=== PATIENT | female | born 1955 | race Caucasian/White ===

== ENCOUNTER 2022-10-02 16:28 | Emergency (ER) | payer MEDICARE, SELFPAY ==
--- NOTE | ~2022-10-02 | XR_ITS ---
EXAMINATION: XR chest 2V 10/02/2022 17:01 INDICATION: Left arm pain radiating to the upper back. PROCEDURE: 2 view chest COMPARISON: Comparison to multiple prior studies sequentially, with oldest reviewed study dated 12/08. FINDINGS: The lungs are clear. The cardiomediastinal silhouette is within normal limits. There are no pleural effusions. There is no pneumothorax suspected. IMPRESSION: 1: NO ACUTE CARDIOPULMONARY DISEASE. Reviewed, dictated and finalized at location A. GAGE FIELD INSPECTOR
--- NOTE | 2022-10-02 16:32 | ECG_ITS ---
Rate 92 WA 189 QRSd 106 QT 372 QTc 460 --[place]-- P -9 QRS 78 T 7 SINUS RHYTHM INCOMPLETE RIGHT BUNDLE BRANCH BLOCK DELAYED PRECORDIAL R/S TRANSITION BORDERLINE T WAVE ABNORMALITY- ANTERIOR LEADS BASELINE ARTIFACT- II BORDERLINE ECG NO PREVIOUS ECG AVAILABLE FOR COMPARISON Electronically Signed On 10-03-2022 14:42:55 RECORD RETRIEVAL SPECIALIST by Puma COHN
[2022-10-02 16:43] VITALS: BP 141/64; PULSE 97; RESP 18; TEMP 36.6; O2SAT 98
[2022-10-02 16:49] LABS: Basophils Absolute Auto 0.1 K/mm3 (0.0-0.1); Basophils Percent Auto 0.5 % (0.2-1.2); Eosinophils Absolute Auto 0.1 K/mm3 (0-0.3); Eosinophils Percent Auto 0.8 % (0-4.4); Hematocrit 37.4 % (37.0-47.0); Hemoglobin 12.7 g/dL (12.0-15.0); Immature Granulocyte Absolute 0.04 K/mm3 (0.00-0.031); Immature Granulocyte Percent A 0.4 % (0-0.5); Lymphocytes Absolute Auto 1.48 K/mm3 (0.9-3.2); Lymphocytes Percent Auto 14.9 % (18.3-44.2); Mean Corpuscular Hemoglobin 27.7 pg (26-34); Mean Corpuscular Volume 81.7 fl (80-100); Mean Platelet Volume 9.8 fl (7.4-10.4); Monocytes Absolute Auto 1.1 K/mm3 (0.1-0.6); Monocytes Percent Auto 11.5 % (2.6-8.5); Neutrophils Absolute Auto 7.2 K/mm3 (1.3-6.7); Neutrophils Percent Auto 71.9 % (45.5-73.1); Platelet Count Result 383 k/mm3 (150-375); Red Blood Count 4.58 M/mm3 (4.2-5.4); Red Cell Distribution Width 13.2 % (11.5-14.5)
[2022-10-02 16:59] LABS: Alanine Aminotransferase 21 U/L (6-35); Albumin Level 4.5 g/dL (3.5-5.1); Alkaline Phosphatase 81 U/L (38-126); Anion Gap 9 mmol/L (8-16); Aspartate Amino Transferase 29 U/L (14-36); Bilirubin,Total 0.5 mg/dL (0.2-1.3); Blood Urea Nitrogen 10 mg/dL (7-17); Calcium 8.8 mg/dL (8.4-10.2); Carbon Dioxide 25 mmol/L (22-30); Chloride 88 mmol/L (98-107); Estimated CRCL calculation 93 ml/min; Estimated Glomerular Filt Rate > 60; Glucose 149 mg/dL (65-110); Lipase 101 U/L (23-300); Potassium 3.2 mmol/L (3.4-5.0); Sodium 122 mmol/L (137-145)
[2022-10-02 17:01] LABS: INR 1.1; Prothrombin Time 13.5 Seconds (11.1-14.7)
[2022-10-02 17:02] LABS: Partial Thromboplastin Time 24.4 SECONDS (22.3-36.8)
[2022-10-02 17:11] LABS: Troponin I < 0.012 ng/mL (0.000-0.034)
[2022-10-02 20:20] VITALS: BP 177/73; PULSE 98; RESP 22; O2SAT 100
[2022-10-02] MEDS: ASPIRIN 81 MG CHEWABLE TABLET 324 MG PO (20:21)
[2022-10-02 20:48] LABS: Troponin I < 0.012 ng/mL (0.000-0.034)
--- NOTE | 2022-10-02 21:05 | PC.NURSE ---
During of examination of pt, this nurse notices that the pt is experiencing tremors and appears to be anxious. This nurse asks about meds and discovers that pt usually takes sertraline and 1.5 mg of Xanax daily but cannot find those medications and therefore has stopped taking them abruptly. Pt last took sertraline 2 days ago.She took a dose of her 's medication when EMS came to her residence for the first time today.
[2022-10-02] MEDS: KETOROLAC 15 MG/ML VIAL (*BKC) IV PUSH (21:15)
[2022-10-02 23:19] VITALS: BP 134/62; PULSE 78; RESP 20; O2SAT 98
[2022-10-03 02:07] LABS: Ethanol < 10 mg/dL (<10)
[2022-10-03 02:22] LABS: Troponin I < 0.012 ng/mL (0.000-0.034)
[2022-10-03 02:44] LABS: Barbiturate Screen Urine Negative (Negative); Benzodiazepines Screen Urine Positive (Negative)
[2022-10-03 02:52] LABS: Amphetamine Screen Urine Negative (Negative); Cannabinoid Screen Urine Negative (Negative); Cocaine Screen Urine Negative (Negative); Methadone Screen Urine Negative (Negative); Opiate Screen Urine Positive (Negative); Phencyclidine Screen Urine Negative (Negative)
[2022-10-03 03:10] LABS: Influenza A QL RT-PCR Negative (Negative); Influenza B QL RT-PCR Negative (Negative); SARS-CoV-2 RNA PCR Negative
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
[2022-10-03 04:53] VITALS: BP 134/72; PULSE 68; RESP 22; TEMP 36.3; O2SAT 100
== END 2022-10-03 04:58 | disposition home or self-care (01) ==
PROVIDERS: Emergency Medicine; Emergency Provider Emergency Medicine; PCP Family Medicine
DX: F41.9 Anxiety disorder, unspecified (principal); F22 Delusional disorders; Z20.822 Contact with and (suspected) exposure to COVID-19; Z91.128 Patient's intentional underdosing of medication regimen for other reason; E78.5 Hyperlipidemia, unspecified; I10 Essential (primary) hypertension; Z86.73 Personal history of transient ischemic attack (TIA), and cerebral infarction without residual deficits; I45.10 Unspecified right bundle-branch block; R94.31 Abnormal electrocardiogram [ECG] [EKG]; R07.9 Chest pain, unspecified
CPT/HCPCS: 36415; 71046; 80053; 80307; 83690; 84443; 84484; 85025; 85610; 85730; 87636; 93005; 96374; 99284; A9270; J1885

== ENCOUNTER → 2023-09-06 15:10 | Outpatient (CLI) | payer MEDICARE, SELFPAY ==
--- NOTE | ~2023-09-06 | MR_ITS ---
MRI of the brain Clinical History: Amnesia Technique: Axial and sagittal T1-weighted images were acquired. These were followed by axial T2-weigh harinder, diffusion weighted, gradient, and FLAIR images. Findings: There is no acute infarct, intracranial hemorrhage, or mass lesion. There are mild chronic white matter changes in the periventricular white matter bilaterally. Ventricles and subarachnoid spaces are unremarkable. Orbits are unremarkable. Paranasal sinuses and m astoid air cells are clear. Major intracranial flow voids appear intact. Sagittal midline structures are intact. IMPRESSION: Mild chronic microvascular ischemic changes, otherwise unremarkable exam. Reviewed, dictated and finalized at location M. [employer] VICE PRESIDENT [employer] SAL[employer]
== END ==
PROVIDERS: PCP Student in an Organized Health Care Education/Training Program; Visit Provider Student in an Organized Health Care Education/Training Program
DX: I67.82 Cerebral ischemia (principal); R41.3 Other amnesia
CPT/HCPCS: 70551

== ENCOUNTER 2024-09-19 11:56 | Outpatient (CLI) | payer MEDICARE, SELFPAY ==
--- NOTE | ~2024-09-19 | XR_ITS ---
CHEST RADIOGRAPH, PA AND LATERAL CLINICAL HISTORY: PNEUMONIA FOLLOW UP, HX OF ASTHMA . COMPARISON: 10/02/2022 TECHNIQUE: PA and lateral views of the chest. FINDINGS The cardiomediastinal silhouette is unremarkable. The lungs are clear. Visualized osseous structures and soft tissues are unremarkable. IMPRESSION: No focal infiltrate or effusion. Reviewed, dictated and finalized at location A. IDENTIAL HELICOPTER CREW CHIEF
== END 2024-09-19 11:57 | disposition home or self-care (01) ==
PROVIDERS: PCP Psychiatry & Neurology Neurology; Visit Provider Nurse Practitioner Family
DX: R06.00 Dyspnea, unspecified (principal)
CPT/HCPCS: 71046

== ENCOUNTER 2024-10-08 09:10 | Outpatient (CLI) | payer MEDICARE, SELFPAY ==
--- OUTSIDE RECORDS SUMMARY | 2024-10-09 22:20 | XMS_ITS | Clinical Summary ---
Author Organization [facility] Address [facility]. [place], [place] [id number] [place] [id number] Care Team Providers Care Program Management Analyst Name Role Phone Unavailable Primary Care Provider Unavailabl e Social History Tobacco Use Types Packs/Day Years Used Date Smoking Tobacco: Never Assessed Comments Unknown Sex and Gender Information Value Date Recorded Sex Assigned at Not on file Legal Sex Female 4:46 PM CDT Gender Identity Not on file Sexual Orientation Not on file Plan of Treatment Health Maintenance Due Date Last Done Comments Colorectal Cancer Screening Colonoscopy (10 Years) 1956 Hepatitis C 1974 DTaP, Tdap and Td Vaccines ( 1 - Tdap) 1975 Mammogram Screening 1996 Zoster Vaccines (1 of 2) 2006 Dexa Scan (General) 2021 Pneumococcal Vaccine: 65+ Ye ars (1 of 1 - PCV) 2021 COVID-19 Vaccine (2023-2 5 season) 2024 Influenza Adult (#1) 2024 RSV Immunization or 60+ Years (1 - 1-dose 75+ series) 2031 Meningococcal Vaccine Aged Out No zach klaus eligible based on patient's age to complete this topic RSV Immunizations Under 20 Months Aged Out No longer eligible based on patient's age to complete this topic
--- NOTE | 2024-10-27 17:16 | P.SLEEP_ITS ---
Sleep Study Date of Study: 10/08/24 Ordering Provider: Fox Guevara APRN Interpreting Physician: Darlene Green MD Sleep Study Type: Split Polysomnogram Height: 1.7 m Weight: 95.254 kg Body Mass Index: 32.8 Neck Circumference (inches): 19 [place]: 3 PMFSH Past Medical History Medical History Occipital neuralgia of right side Hyperlipidemia Hypertension TIA (transient ischemic attack) Anxiety Surgical History Surgical History No pertinent past surgical history Social History Social History Smoking status: Never smoker Second hand tobacco smoke exposure: No Alcohol intake: never Drinks per week: 0 Substance use: never Do You Feel Safe in your Home?: Yes Lack of Transportation: No Lack of Food: Never True Current Housing: I Have Housing Concerned About Future Housing: No Difficulty Paying Gas/Electric Bills: No Difficulty Paying for Meds: No Currently Unemployed: No Education: High School Diploma/GED Difficulty w/ Childcare or Family Care: No Medications Home Medications ?Medication ?Instructions ?Recorded ?Confirmed ?Type alprazolam 1 mg tablet 1 mg PO DAILY 08/30/23 08/05/24 History aripiprazole 2 mg tablet (Abilify) 2 mg PO DAILY 08/30/23 08/05/24 History bupropion HCl 150 mg 24 hr tablet, 150 mg PO QAM 08/30/23 08/05/24 History extended release hydrochlorothiazide 25 mg tablet 25 mg PO DAILY 08/30/23 08/05/24 History losartan 100 mg tablet 100 mg PO DAILY 08/30/23 08/05/24 History potassium chloride 10 mEq 10 meq PO DAILY 04/02/24 08/05/24 History capsule,extended release donepezil 10 mg tablet 10 mg PO QHS #90 tabs 08/05/24 08/05/24 Rx rimegepant 75 mg disintegrating 75 mg PO ONCE PRN migraine 08/05/24 08/05/24 Rx tablet (Nurtec ODT) headache #14 tabs sertraline 100 mg tablet 50 mg PO DAILY 08/05/24 08/05/24 History topiramate 100 mg tablet 100 mg PO DAILY #90 tabs 08/05/24 08/05/24 Rx albuterol sulfate 90 mcg/actuation 1 - 2 inh inhalation Q4-6H PRN 09/19/24 09/19/24 Rx aerosol inhaler shortness of breath or wheezing #8.5 grams budesonide-formoterol HFA 160 2 puff inhalation Q12H #10.2 grams 09/19/24 09/19/24 Rx mcg-4.5 mcg/actuation aerosol inhaler (Symbicort) Sleep Procedure A full night polysomnogram using the [employer] multi-channel system recorded the standard physiologic parameters including EEG, EOG, submentalis EMG, anterior tibialis EMG, EKG, body position, nasal and oral airflow using nasal pressure sensor and thermistor. Respiratory parameters of chest and abdominal movements were recorded with Respiratory Inductance Plethysmography belts. Oxygen saturation was recorded by pulse oximetry. Video monitoring was also performed. Sleep stages, periodic limb movements, and EEG arousals were scored in 30 second epochs according to the criteria of the AASM Scoring Manual. The Apnea-Hypopnea Index was calculated using CMS guidelines for definition of hypopnea with 4% O2 desaturations while scoring respiratory events. Sleep Architecture Sleep Architecture During the diagnostic portion of the study, the total recording time was 176.3 minutes. The total sleep time was 137.0 minutes. Sleep latency was 11.8 minutes. REM latency was - minutes. Sleep Efficiency was 77.7%. The patient had 10 awakenings for an awakening index of 4.4. Wake after sleep onset time was 27.5 minutes. The patient spent 35.0 minutes, 25.5% of total sleep time in Stage N1. The patient spent 102.0 minutes, 74.5% in Stage N2. The patient spent 0.0 minutes, 0.0% in Stage N3. The patient spent 0.0 minutes, 0.0% in Stage REM sleep. At 01:21:39 AM the patient was placed on PAP treatment and was titrated at pressures ranging from 5* cm/H20 with supplemental oxygen at - up to 24/20/0 cm/H20 with supplemental oxygen at -. During the treatment portion of the study, the total recording time was 298.6 minutes. The total sleep time was 260.0 minutes. Sleep latency was 17.5 minutes. REM latency was 154.0 minutes. Sleep Efficiency was 87.1%. Wake after Sleep Onset time was 21.0 minutes. The patient spent 69.5 minutes, 26.7% of total sleep time in Stage N1. The patient spent 146.5 minutes, 56.3% in Stage N2. The patient spent 0.0 minutes, 0.0% in Stage N3. The patient spent 44.0 minutes, 16.9% in Stage REM. Respiratory Analysis During the diagnostic portion of the study, the patient had 86 hypopneas, 115 obstructive apneas, - mixed apneas, and - central apneas for an overall Apnea Hypopnea Index of 88.0 events per hour. The REM Apnea Hypopnea Index was -. The NREM Apnea Hypopnea Index was 88.0. The patient had a Central Apnea Hypopnea Index of -. There were - Respiratory Effort Related Arousals resulting in a RERA index of - events per hour. The Respiratory Disturbance Index is 88.0 events per hour. There was no evidence of Giuliano-Irwin Respirations. During the treatment portion of the study, the patient had 242 hypopneas, 49 obstructive apneas, 18 mixed apneas, and 1 central apneas for an overall Apnea Hypopnea Index of 71.5 events per hour. The REM Apnea Hypopnea Index was 72.3. The NREM Apnea Hypopnea Index was 71.4. The patient had a Central Apnea Hypopnea Index of 0.2. There were - Respiratory Effort Related Arousals resulting in a RERA index of - events per hour. The Respiratory Disturbance Index is 71.8 events per hour. There was no evidence of Giuliano-Irwin Respirations Arousals During the diagnostic portion of the study, there were a total of 193 arousals for an arousal index of 84.5. There were 140 respiratory arousals for an index of 61.3. There were - periodic limb movement arousals for an index of -. There were - isolated limb movement arousals for an index of -. There were 53 spontaneous arousals for an index of 23.2. During the treatment portion of the study, there were a total of 294 arousals for an index of 67.8. There were 249 respiratory arousals for an index of 57.5. There were - periodic limb movement arousals for an index of -. There were - isolated limb movement arousals for an index of -. There were 45 spontaneous arousals for an index of 10.4. Periodic Limb Movements During the diagnostic portion of the study, the patient had - isolated limb movements with an index of -. The patient had - periodic limb movements with an index of -. The patient had a total of - limb movements with a total limb move ment index of -. During the treatment portion of the study, the patient had - isolated limb movements with an index of -. The patient had - periodic limb movements with an index of -. The patient had a total of - limb movements with a total limb movement index of -. Oximetry Data During the diagnostic portion of the study, the patient had an average oxygen saturation of - in wake with a minimum oxygen saturation of - and a maximum oxygen saturation of -. The patient had an average oxygen saturation of 83.2% in sleep with a minimum oxygen saturation of 68.0% and a maximum oxygen saturation of 98.0%. The patient had 194 oxygen desaturations resulting in an Oxygen Desaturation Index of 85.0. The patient spent [min] minutes, [%] of total sleep time with an oxygen saturation less than 88%. During the treatment portion of the study, the patient had an average oxygen saturation of 88.8% in wake with a minimum oxygen saturation of 69.0% and a maximum oxygen saturation of 97.0%. The patient had an average oxygen saturation of 85.3% in sleep with a minimum oxygen saturation of 67.0% and a maximum oxygen saturation of 98.0%. The patient had 305? oxygen desaturations resulting in an Oxygen Desaturation Index of 70.8. The patient spent [min] minutes, [%] of total sleep time with an oxygen saturation less than 88%. Snoring Profile During the diagnostic portion, snoring was ___. At the optimal pressure, snoring was ___. Cardiac Profile Cardiac Summary During the diagnostic portion of the study, the EKG showed normal sinus rhythm. The average pulse rate was 78.6 bpm. The minimum pulse rate was 64.0 bpm. The maximum pulse rate was 96.0 bpm. During the treatment portion of the study, the EKG showed normal sinus rhythm. The average pulse rate was 77.1 bpm. The minimum pulse rate was 62.0 bpm. The maximum pulse rate was 102.0 bpm. Assessment and Plan Assessment and Plan (1) Obstructive sleep apnea: Code(s): G47.33 - Obstructive sleep apnea (adult) (pediatric) Status: Acute Assessment and Plan: This split night sleep study on 10/08/2024 shows extremely severe obstructive sleep apnea, the apnea-hypopnea index is 88 with desaturation to 68% and profound hypoxemia, 100.5 minutes, 60.5% of the baseline spent below 88%. The patient remained hypoxemic as well during the titration. During the titration the patient has been 168.2 minutes, 57% of the titration with a saturation below 88%. Data The data obtained during this sleep study is adequate for interpretation. Certification This sleep study has been reviewed by a board certified sleep medicine physician.
--- NOTE | 2024-10-27 17:16 | WPDSLEEPSTUD ---
Sleep Study Date of Study: 10/08/24 Ordering Provider: Fox Guevara APRN Interpreting Physician: Darlene Green MD Sleep Study Type: Split Polysomnogram Height: 1.7 m Weight: 95.254 kg Body Mass Index: 32.8 Neck Circumference (inches): 19 [place]: 3 Reason for Sleep Study Known severe obstructive sleep apnea on home sleep test through [place], patient refused treatment at the time Sleep History Jacqueline Brantley is 69 years old, had a home sleep test at [facility] a year ago, had severe apnea however she did not want to pursue treatment at the time. ON LICENSE OF [facility] Past Medical History Medical History (Updated 11/12/24 @ 22:01 by Darlene Green MD) Chronic back pain Asthma Major depressive disorder Pre-diabetes Obstructive sleep apnea Occipital neuralgia of right side Hyperlipidemia Hypertension TIA (transient ischemic attack) Anxiety Surgical History Surgical History No pertinent past surgical history Family History Family History (Updated 11/12/24 @ 21:10 by Darlene Green MD) Sibling Obstructive sleep apnea Social History Social History Smoking status: Never smoker Second hand tobacco smoke exposure: No Alcohol intake: never Drinks per week: 0 Substance use: never Do You Feel Safe in your Home?: Yes Lack of Transportation: No Lack of Food: Never True Current Housing: I Have Housing Concerned About Future Housing: No Difficulty Paying Gas/Electric Bills: No Difficulty Paying for Meds: No Currently Unemployed: No Education: High School Diploma/GED Difficulty w/ Childcare or Family Care: No Medications Home Medications ?Medication ?Instructions ?Recorded ?Confirmed ?Type alprazolam 1 mg tablet 1 mg PO DAILY 08/30/23 08/05/24 History aripiprazole 2 mg tablet (Abilify) 2 mg PO DAILY 08/30/23 08/05/24 History bupropion HCl 150 mg 24 hr tablet, 150 mg PO QAM 08/30/23 08/05/24 History extended release hydrochlorothiazide 25 mg tablet 25 mg PO DAILY 08/30/23 08/05/24 History losartan 100 mg tablet 100 mg PO DAILY 08/30/23 08/05/24 History potassium chloride 10 mEq 10 meq PO DAILY 04/02/24 08/05/24 History capsule,extended release donepezil 10 mg tablet 10 mg PO QHS #90 tabs 08/05/24 08/05/24 Rx rimegepant 75 mg disintegrating 75 mg PO ONCE PRN migraine 08/05/24 08/05/24 Rx tablet (Nurtec ODT) headache #14 tabs sertraline 100 mg tablet 50 mg PO DAILY 08/05/24 08/05/24 History topiramate 100 mg tablet 100 mg PO DAILY #90 tabs 08/05/24 08/05/24 Rx albuterol sulfate 90 mcg/actuation 1 - 2 inh inhalation Q4-6H PRN 09/19/24 09/19/24 Rx aerosol inhaler shortness of breath or wheezing #8.5 grams budesonide-formoterol HFA 160 2 puff inhalation Q12H #10.2 grams 09/19/24 09/19/24 Rx mcg-4.5 mcg/actuation aerosol inhaler (Symbicort) Sleep Procedure A full night polysomnogram using the [employer] multi-channel system recorded the standard physiologic parameters including EEG, EOG, submentalis EMG, anterior tibialis EMG, EKG, body position, nasal and oral airflow using nasal pressure sensor and thermistor. Respiratory parameters of chest and abdominal movements were recorded with Respiratory Inductance Plethysmography belts. Oxygen saturation was recorded by pulse oximetry. Video monitoring was also performed. Sleep stages, periodic limb movements, and EEG arousals were scored in 30 second epochs according to the criteria of the AASM Scoring Manual. The Apnea-Hypopnea Index was calculated using CMS guidelines for definition of hypopnea with 4% O2 desaturations while scoring respiratory events. She self-administered 2 alprazolam 2 mg each, a totla of 4 mg, at home before arrival for anxiety. She did not take any additional sedative-hypnotic at the start of the test. The patient met criteria for a split night study, the baseline apnea-hypopnea index was 88 with desaturation to 68% and moderate to loud snoring. She used a medium [employer] AirTouch F20 fullface mask with heated humidity, initial pressure was CPAP 5 cm, titrated to 7 cm, 9 cm, 11 cm, 13 cm, 15 cm, 17 cm, BiPAP 19/15, BiPAP 21/17, BiPAP 23/19 and BiPAP 24/20. No optimal pressures were identified. For example, on the baseline the apnea-hypopnea index was 88. With initiation of CPAP, the apnea-hypopnea index REM between 64 and 101. The patient was then transitioned to BiPAP after CPAP 17. The apnea-hypopnea index remained elevated from 53 up to 75. There were no central apneas. There was very little REM. Dense REM episode occurred on CPAP 17 and BiPAP 19/15. Sleep Architecture During the diagnostic portion of the study, the total recording time was 176.3 minutes. The total sleep time was 137.0 minutes. Sleep latency was 11.8 minutes. REM latency was - minutes. Sleep Efficiency was 77.7%. The patient had 10 awakenings for an awakening index of 4.4. Wake after sleep onset time was 27.5 minutes. The patient spent 35.0 minutes, 25.5% of total sleep time in Stage N1. The patient spent 102.0 minutes, 74.5% in Stage N2. The patient spent no time in Stage N3 or Stage REM sleep. At 01:21:39 AM the patient was placed on PAP treatment using a medium [employer] AirTouch F20 fullface mask and heated humidity, initial pressure was CPAP 5 cm, titrated to 7 cm, 9 cm, 11 cm, 13 cm, 15 cm, 17 cm, BiPAP 19/15, BiPAP 21/17, BiPAP 23/19 and BiPAP 24/20. During the treatment portion of the study, the total recording time was 298.6 minutes. The total sleep time was 260.0 minutes. Sleep latency was 17.5 minutes. REM latency was 154.0 minutes. Sleep Efficiency was 87.1%. Wake after Sleep Onset time was 21.0 minutes. The patient spent 69.5 minutes, 26.7% of total sleep time in Stage N1. The patient spent 146.5 minutes, 56.3% in Stage N2. The patient spent no time in Stage N3. The patient spent 44.0 minutes, 16.9% in Stage REM. Respiratory Analysis During the diagnostic portion of the study, the patient had 86 hypopneas, 115 obstructive apneas, no mixed or central apneas for an overall Apnea Hypopnea Index of 88.0 events per hour. The REM Apnea Hypopnea Index was 0 because there was no REM on the baseline. The NREM Apnea Hypopnea Index was 88.0. The patient had a Central Apnea Hypopnea Index of 0.. There were no Respiratory Effort Related Arousals. The Respiratory Disturbance Index is 88.0 events per hour. There was no evidence of Giuliano-Irwin Respirations. During the treatment portion of the study, the patient had 242 hypopneas, 49 obstructive apneas, 18 mixed apneas, and 1 central apnea for an overall Apnea Hypopnea Index of 71.5 events per hour. The REM Apnea Hypopnea Index was 72.3. The NREM Apnea Hypopnea Index was 71.4. The patient had a Central Apnea Hypopnea Index of 0.2. There were no Respiratory Effort Related Arousals. The Respiratory Disturbance Index is 71.8 events per hour. There was no evidence of Giuliano-Irwin Respirations Arousals During the diagnostic portion of the study, there were a total of 193 arousals for an arousal index of 84.5. There were 140 respiratory arousals for an index of 61.3. There were no periodic limb movement or isolated limb movement arousals. There were 53 spontaneous arousals for an index of 23.2. During the treatment portion of the study, there were a total of 294 arousals for an index of 67.8. There were 249 respiratory arousals for an index of 57.5. There were no periodic limb movement or isolated limb movement arousals. There were 45 spontaneous arousals for an index of 10.4. Periodic Limb Movements During the diagnostic portion of the study, the patient had no isolated limb movements or periodic limb movements. During the treatment portion of the study, the patient had no isolated limb movements or periodic limb movements. Oximetry Data During the diagnostic portion of the study, the patient had an average oxygen saturation of 89.8% in wake with a minimum oxygen saturation of 72% and a maximum oxygen saturation of 98%. The patient had an average oxygen saturation of 83.2% in sleep with a minimum oxygen saturation of 68% and a maximum oxygen saturation of 98%. The patient had 194 oxygen desaturations resulting in an Oxygen Desaturation Index of 85.0. The patient spent 100.5 minutes, 60.5% of total sleep time with an oxygen saturation less than 88%. During the treatment portion of the study, the patient had an average oxygen saturation of 88.8% in wake with a minimum oxygen saturation of 69% and a maximum oxygen saturation of 97%. The patient had an average oxygen saturation of 85.3% in sleep with a minimum oxygen saturation of 67% and a maximum oxygen saturation of 98%. The patient had 305 oxygen desaturations resulting in an Oxygen Desaturation Index of 70.8. The patient spent 168.2 minutes, 57% of total sleep time with an oxygen saturation less than 88%. Snoring Profile The patient had moderate to loud snoring throughout the night. Snoring improved during the titration. Cardiac Profile During the diagnostic portion of the study, the EKG showed normal sinus rhythm. The average pulse rate was 78.6 bpm. The minimum pulse rate was 64 bpm. The maximum pulse rate was 96 bpm. No arrhythmias noted. During the treatment portion of the study, the EKG showed normal sinus rhythm. The average pulse rate was 77.1 bpm. The minimum pulse rate was 62 bpm. The maximum pulse rate was 102 bpm. No arrhythmias noted. EEG Profile EEG was unremarkable, no evidence of seizures. Assessment and Plan Assessment and Plan (1) Obstructive sleep apnea: Code(s): G47.33 - Obstructive sleep apnea (adult) (pediatric) Status: Acute Assessment and Plan: This split night sleep study on 10/08/2024 shows extremely severe obstructive sleep apnea, the apnea-hypopnea index is 88 with desaturation to 68% and profound hypoxemia, 100.5 minutes, 60.5% of the baseline spent below 88%. The patient remained hypoxemic during the titration. She spent 168.2 minutes, 57% of the titration with a saturation below 88%. No optimal pressure was identified. She had a titration which included CPAP pressures 5 through 17 and BiPAP pressures 19/15 through 24/20 with sustained hypoxemia, minimum saturations in the 67% to 76% range. This was a difficult and meticulously conducted titration with a proper amount of time spent at each pressure to evaluate the appropriateness of each setting. The entire study was spent in the supine position. No backup rate was indicated. Supplemental oxygen was not used per protocol. Mixed apneas occurred at the final BiPAP pressure 24/20. Sleep was fragmented all night. There was a solid episode of REM while the patient was using CPAP 17 and BiPAP 19/15. She needs to have a full night CPAP/BiPAP titration starting with an initial pressure of CPAP 12. If she has increasing pressures and the AHI remains unacceptably high, will consider raising the head of the bed. Positional therapy can reduce the AHI. On this split night study, she did not qualify for having a back up rate added or having O2 added. Her BMI is 32.9, above normal, however not extremely high. Weight loss is not going to help achieve much lower AHI. She took 4 mg of alprazolam before arriving at this split night test. Ideally, she would not take any sleep aid until ready to start the study. Data The data obtained during this sleep study is adequate for interpretation. Certification This sleep study has been reviewed by a board certified sleep medicine physician.
[2024-11-12 21:07] VITALS: BMI 32.8
== END 2024-10-09 07:19 | disposition home or self-care (01) ==
LOC: ANHCSM 09:14
PROVIDERS: PCP Psychiatry & Neurology Neurology; Visit Provider Nurse Practitioner Family
DX: G47.33 Obstructive sleep apnea (adult) (pediatric) (principal)
CPT/HCPCS: 95811

== ENCOUNTER 2024-10-14 07:48 | Outpatient (CLI) | payer MEDICARE, SELFPAY ==
--- OUTSIDE RECORDS SUMMARY | 2024-10-14 07:52 | XMS_ITS | Clinical Summary ---
Author Organization [facility] Address [facility]6 [facility]. [place], [place] [id number] [place] [id number] Care Team Providers Care Motor Mechanic Name Role Phone Unavailable Primary Care Provider [...] (1 - 1-dose 75+ series) 2031 Meningococcal B Vaccine Aged Out No l onger eligible based on patient's age to complete this topic Meningococcal Vaccine Aged Out No zach klaus eligible based on patient's age to complete this topic RSV Immunizations Under 20 Months Aged Out No longer eligible based on patient's age to complete this topic
--- OUTSIDE RECORDS SUMMARY | 2024-10-14 07:53 | XMS_ITS | Data Portability ---
Author Organization [place] [facility], Main Office Address [address] [place] [address] Assessment No assessment recorded. Plan of Treatment Reminders Order Date Submit Date Provider Last Modified By Organization Details Last Modified Time Details Appointments Follow Up 2024 01:00P M JING Junior Not available Not available Not available Follow Up 2024 01:00P M Janelle Veloz NP Not available Not available Not available Lab BMP, serum or plasma 2023 024 JUAN CARLOS Not available 12/25/2023 20:11:26 Referral None recorded. Procedures None recorded. Surgeries None recorded. Imaging None recorded. Medication Orders acetamino phen 300 mg-codein e 30 mg tablet 2023 024 [facility] [address] [place], [address], 12/25/2023 14:14:27 donepezil 5 mg tablet 2023 024 [facility] [address], [address] [place], [address], 12/25/2023 14:11:10 losartan 100 mg tablet 2023 024 [facility] [address], [address], [place], [address], 12/25/2023 14:11:05 hydrochlo rothiazid e 25 mg tablet 2023 024 [facility] [address], [address], [place], [address], 12/25/2023 14:11:06 bupropion HCl XL 150 mg 24 hr tablet, extended release 2023 024 [facility] [address], [address] , [place], [address], 12/25/2023 14:11:08 aripipraz ole 2 mg tablet 2023 024 [facility] [address], [address], [place], [address], 12/25/2023 14:11:06 sertralin e 100 mg tablet 2023 024 [facility] [address], [address], [place], [address], 12/25/2023 14:11:07 potassium chloride ER 20 mEq tablet,ex tended release 2023 024 [facility] [address], [address] , [place], [address], 12/25/2023 14:11:05 albuterol sulfate HFA 90 mcg/actua tion aerosol inhaler 2023 024 [facility] [address], [address] , [place], [address], 07/02/2024 12:46:12 Symbicort 80 mcg-4.5 mcg/actua tion HFA aerosol inhaler 2023 024 [facility] [address], [address] , [place], [address], 07/02/2024 12:46:11 Patient TargetsNo targets recorded. Patient InstructionsNo instructions recorded. Reason for Referral None Reported. Results Created Date Observation Date Name Description Value Unit Range Abnormal Flag Note LastModifiedBy Organization Detail LastModifiedTime 10/23/19 24 10/23/2023 CBC/C OMPLE TE BLD COUNT W/DIF F white blood cells 7.1 x10'3 /uL 4.2-10 .8 Not Available [facility] (Lab) [address] [place], [address], 10/23/2023 22:03:11 10/23/19 24 10/23/2023 CBC/C OMPLE TE BLD COUNT W/DIF F red blood cells 4.80 x10'6 /uL 3.80-5 .20 Not Available [facility] (Lab) [address] [place], [address], 10/23/2023 22:03:11 10/23/19 24 10/23/2023 CBC/C OMPLE TE BLD COUNT W/DIF F hemoglobin 13.2 g/dL 12.0-1 5.6 Not Available [facility] (Lab) [address] [place], [address], 10/23/2023 22:03:11 10/23/19 24 10/23/2023 CBC/C OMPLE TE BLD COUNT W/DIF F hematocrit 39.4 % 35.7-4 5.7 Not Available [facility] (Lab) [address] [place], [address], 10/23/2023 22:03:11 10/23/19 24 10/23/2023 CBC/C OMPLE TE BLD COUNT W/DIF F mean red cell volume 82.1 fL 82.0-9 9.0 Not Available [facility] (Lab) [address] [place], [address], 10/23/2023 22:03:11 10/23/19 24 10/23/2023 CBC/C OMPLE TE BLD COUNT W/DIF F mean red cell hemoglobin 27.5 pg 27.0-3 3.0 Not Available [facility] (Lab) [address] [place], [address], 10/23/2023 22:03:11 10/23/19 24 10/23/2023 CBC/C OMPLE TE BLD COUNT W/DIF F mean RBC HGB concentratio n 33.5 g/dL 31.0-3 6.0 Not Available [facility] (Lab) [address] [place], [address], 10/23/2023 22:03:11 10/23/19 24 10/23/2023 CBC/C OMPLE TE BLD COUNT W/DIF F red cell distribution width 13.1 % 11.8-1 5.5 Not Available [facility] (Lab) [address] [place], [address], 10/23/2023 22:03:11 10/23/19 24 10/23/2023 CBC/C OMPLE TE BLD COUNT W/DIF F platelets 403 x10'3 /uL 150-40 0 high Not Available [facility] (Lab) [address] [place], [address], 10/23/2023 22:03:11 10/23/19 24 10/23/2023 CBC/C OMPLE TE BLD COUNT W/DIF F mean platelet volume 10.8 fL 9.0-12 .4 Not Available [facility] (Lab) [address] [place], [address], 10/23/2023 22:03:11 10/23/19 24 10/23/2023 CBC/C OMPLE TE BLD COUNT W/DIF F neutrophils 56.2 % 39.0-7 2.0 Not Available [facility] (Lab) [address] [place], [address], 10/23/2023 22:03:11 10/23/19 24 10/23/2023 CBC/C OMPLE TE BLD COUNT W/DIF F lymphocytes 22.9 % 16.0-4 7.0 Not Available [facility] (Lab) [address] [place], [address], 10/23/2023 22:03:11 10/23/19 24 10/23/2023 CBC/C OMPLE TE BLD COUNT W/DIF F monocytes 13.4 % 5.0-12 .0 high Not Available [facility] (Lab) [address] [place], [address], 10/23/2023 22:03:11 10/23/19 24 10/23/2023 CBC/C OMPLE TE BLD COUNT W/DIF F eosinophils 6.1 % 1.0-7. 0 Not Available [facility] (Lab) [address] [place], [address], 10/23/2023 22:03:11 10/23/19 24 10/23/2023 CBC/C OMPLE TE BLD COUNT W/DIF F basophils 1.1 % 0.0-2. 0 Not Available [facility] (Lab) [address] [place], [address], 10/23/2023 22:03:11 10/23/19 24 10/23/2023 CBC/C OMPLE TE BLD COUNT W/DIF F immature granulocytes 0.3 % 0.00-0 .50 Not Available [facility] (Lab) [address] [place], [address], 10/23/2023 22:03:11 10/23/19 24 10/23/2023 CBC/C OMPLE TE BLD COUNT W/DIF F neutrophils, absolute count 3.97 x10'3 /uL 1.5-8. 0 Not Available [facility] (Lab) [address] [place], [address], 10/23/2023 22:03:11 10/23/19 24 10/23/2023 CBC/C OMPLE TE BLD COUNT W/DIF F lymphocytes, absolute count 1.62 x10'3 /uL 1.07-3 .43 Not Available [facility] (Lab) [address] [place], [address], 10/23/2023 22:03:11 10/23/19 24 10/23/2023 CBC/C OMPLE TE BLD COUNT W/DIF F monocytes, absolute count 0.95 x10'3 /uL 0.29-0 .99 Not Available [facility] (Lab) [address] [place], [address], 10/23/2023 22:03:11 10/23/19 24 10/23/2023 CBC/C OMPLE TE BLD COUNT W/DIF F eosinophils, absolute count 0.43 x10'3 /uL 0.02-0 .53 Not Available [facility] (Lab) [address] [place], [address], 10/23/2023 22:03:11 10/23/19 24 10/23/2023 CBC/C OMPLE TE BLD COUNT W/DIF F basophils, absolute count 0.08 x10'3 /uL 0.01-0 .08 Not Available [facility] (Lab) [address] [place], [address], 10/23/2023 22:03:11 10/23/19 24 10/23/2023 CBC/C OMPLE TE BLD COUNT W/DIF F immature granulocytes ,absolute 0.02 x10'3 /uL 0.00-0 .05 Not Available [facility] (Lab) [address] [place], [address], 10/23/2023 22:03:11 10/23/19 24 10/23/2023 CBC/C OMPLE TE BLD COUNT W/DIF F nucleated red blood cells 0.0 % -0 Not Available [facility] (Lab) [address] [place], [address], 10/23/2023 22:03:11 10/23/19 24 10/23/2023 CBC/C OMPLE TE BLD COUNT W/DIF F NRBC# 0.00 x10'3 /uL Not Available [facility] (Lab) [address] [place], [address], 10/23/2023 22:03:11 10/23/19 24 10/23/2023 BASIC METAB OLIC PANEL sodium 129 mmol/ L 137-14 5 low Not Available [facility] (Lab) [address] [place], [address], 10/23/2023 23:04:43 10/23/19 24 10/23/2023 BASIC METAB OLIC PANEL potassium 4.1 mmol/ L 3.5-5. 1 Not Available [facility] (Lab) [address] [place], [address], 10/23/2023 23:04:43 10/23/19 24 10/23/2023 BASIC METAB OLIC PANEL chloride 96 mmol/ L 98-107 low Not Available [facility] (Lab) [address] [place], [address], 10/23/2023 23:04:43 10/23/19 24 10/23/2023 BASIC METAB OLIC PANEL carbon dioxide 26 mmol/ L 22-30 Not Available [facility] (Lab) [address] [place], [address], 10/23/2023 23:04:43 10/23/19 24 10/23/2023 BASIC METAB OLIC PANEL anion gap 11.1 mmol/ L 14-22 low Not Available [facility] (Lab) [address] [place], [address], 10/23/2023 23:04:43 10/23/19 24 10/23/2023 BASIC METAB OLIC PANEL glucose 82 mg/dL 70-99 Not Available [facility] (Lab) [address] [place], [address], 10/23/2023 23:04:43 10/23/19 24 10/23/2023 BASIC METAB OLIC PANEL BUN 10 mg/dL 8-19 Not Available [facility] (Lab) [address] [place], [address], 10/23/2023 23:04:43 10/23/19 24 10/23/2023 BASIC METAB OLIC PANEL creatinine 0.79 mg/dL 0.66-1 .25 Not Available [facility] (Lab) [address] [place], [address], 10/23/2023 23:04:43 10/23/19 24 10/23/2023 BASIC METAB OLIC PANEL GFR >60 Refer ence Range : Marfa ge GFR Healt hy Adult : >60 mL/mi n/1.7 3 m2 Chron ic Kidne y Disea se: 15-60 mL/mi n/1.7 3 m2 Kidne y Failu re: <15/m L/min /1.73 m2 www.n iddk. nih.g ov The MDRD study equat ion has not been valid ated in child silas <18 years of age; pregn ant women ; the elder ly >85 years of age; or in some racia l or ethni c subgr oups, such as Histn nics. Outsi de the valid ated alicia eters , estim ated GFR is less accur ate, requi ring clini ophelia judgm ent on a case- by-ca se basis . Clini ophelia inter preta tion for other races and ages must be made by the clini stewart. The MDRD study equat ion has not been valid ated for the evalu ation of serum creat inine relat ed to nutri norm l statu s or medic ation usage . For perso ns <18 years of age, a pedia tric GFR calcu lator is avail able on the NKF websi te: https ://anahi w.kid amauri.o rg/pr ofess ional s/kdo qi/gf r_cal culat or Not Available [facility] (Lab) [address] [place], [address], 10/23/2023 23:04:43 10/23/19 24 10/23/2023 BASIC METAB OLIC PANEL calcium 9.6 mg/dL 8.4-10 .2 Not Available [facility] (Lab) [address] [place], [address], 10/23/2023 23:04:43 11/15/19 24 11/15/2023 BASIC METAB OLIC PANEL sodium 129 mmol/ L 137-14 5 low Not Available [facility] (Lab) [address] [place], [address], 11/15/2023 19:10:19 11/15/19 24 11/15/2023 BASIC METAB OLIC PANEL potassium 4.2 mmol/ L 3.5-5. 1 Not Available [facility] (Lab) [address] [place], [address], 11/15/2023 19:10:19 11/15/19 24 11/15/2023 BASIC METAB OLIC PANEL chloride 96 mmol/ L 98-107 low Not Available [facility] (Lab) [address] [place], [address], 11/15/2023 19:10:19 11/15/19 24 11/15/2023 BASIC METAB OLIC PANEL carbon dioxide 27 mmol/ L 22-30 Not Available [facility] (Lab) [address] [place], [address], 11/15/2023 19:10:19 11/15/19 24 11/15/2023 BASIC METAB OLIC PANEL anion gap 10.2 mmol/ L 14-22 low Not Available [facility] (Lab) [address] [place], [address], 11/15/2023 19:10:19 11/15/19 24 11/15/2023 BASIC METAB OLIC PANEL glucose 82 mg/dL 70-99 Not Available [facility] (Lab) [address] [place], [address], 11/15/2023 19:10:19 11/15/19 24 11/15/2023 BASIC METAB OLIC PANEL BUN 11 mg/dL 8-19 Not Available [facility] (Lab) [address] [place], [address], 11/15/2023 19:10:19 11/15/19 24 11/15/2023 BASIC METAB OLIC PANEL creatinine 0.71 mg/dL 0.66-1 .25 Not Available [facility] (Lab) [address] [place], [address], 11/15/2023 19:10:19 11/15/19 24 11/15/2023 BASIC METAB OLIC PANEL GFR >60 Refer ence Range : Marfa ge GFR Healt hy Adult : >60 mL/mi n/1.7 3 m2 Chron ic Kidne y Disea se: 15-60 mL/mi n/1.7 3 m2 Kidne y Failu re: <15/m L/min /1.73 m2 www.n iddk. nih.g ov The MDRD study equat ion has not been valid ated in child silas <18 years of age; pregn ant women ; the elder ly >85 years of age; or in some racia l or ethni c subgr oups, such as Hispa nics. Outsi de the valid ated alicia eters , estim ated GFR is less accur ate, requi ring clini ophelia judgm ent on a case- by-ca se basis . Clini ophelia inter preta tion for other races and ages must be made by the clini stewart. The MDRD study equat ion has not been valid ated for the evalu ation of serum creat inine relat ed to nutri norm l statu s or medic ation usage . For perso ns <18 years of age, a pedia tric GFR calcu lator is avail able on the NKF websi te: https ://anahi baugh.milo arroyo/pr mitziess ional s/kdo qi/gf r_cal culat or Not Available [facility] (Lab) [address] [place], [address], 11/15/2023 19:10:19 02/11/15/2023 BASIC METAB OLIC PANEL calcium 9.5 mg/dL 8.4-10 .2 Not Available [facility] (Lab) [address] [place], [address], 11/15/2023 19:10:19 12/25/19 24 12/25/2023 BASIC METAB OLIC PANEL sodium 131 mmol/ L 137-14 5 low Not Available [facility] (Lab) [address] [place], [address], 12/25/2023 20:11:26 12/25/19 24 12/25/2023 BASIC METAB OLIC PANEL potassium 4.1 mmol/ L 3.5-5. 1 Not Available [facility] (Lab) [address] [place], [address], 12/25/2023 20:11:26 12/25/19 24 12/25/2023 BASIC METAB OLIC PANEL chloride 98 mmol/ L 98-107 Not Available [facility] (Lab) [address] [place], [address], 12/25/2023 20:11:26 12/25/19 24 12/25/2023 BASIC METAB OLIC PANEL carbon dioxide 26 mmol/ L 22-30 Not Available [facility] (Lab) [address] [place], [address], 12/25/2023 20:11:26 12/25/19 24 12/25/2023 BASIC METAB OLIC PANEL anion gap 11.1 mmol/ L 14-22 low Not Available [facility] (Lab) [address] [place], [address], 12/25/2023 20:11:26 12/25/19 24 12/25/2023 BASIC METAB OLIC PANEL glucose 93 mg/dL 70-99 Not Available [facility] (Lab) [address] [place], [address], 12/25/2023 20:11:26 12/25/19 24 12/25/2023 BASIC METAB OLIC PANEL BUN 12 mg/dL 8-19 Not Available [facility] (Lab) [address] [place], [address], 12/25/2023 20:11:26 12/25/19 24 12/25/2023 BASIC METAB OLIC PANEL creatinine 0.78 mg/dL 0.66-1 .25 Not Available [facility] (Lab) [address] [place], [address], 12/25/2023 20:11:26 12/25/19 24 12/25/2023 BASIC METAB OLIC PANEL GFR >60 Refer ence Range : Marfa ge GFR Healt hy Adult : >60 mL/mi n/1.7 3 m2 Chron ic Kidne y Disea se: 15-60 mL/mi n/1.7 3 m2 Kidne y Failu re: <15/m L/min /1.73 m2 www.n iddk. nih.g ov The MDRD study equat ion has not been valid ated in child silas <18 years of age; pregn ant women ; the elder ly >85 years of age; or in some racia l or ethni c subgr oups, such as tn nics. Outsi de the valid ated alicia eters , estim ated GFR is less accur ate, requi ring clini ophelia judgm ent on a case- by-ca se basis . Clini ophelia inter preta tion for other races and ages must be made by the clini stewart. The MDRD study equat ion has not been valid ated for the evalu ation of serum creat inine relat ed to nutri norm l statu s or medic ation usage . For perso ns <18 years of age, a pedia tric GFR calcu lator is avail able on the NKF websi te: https ://anahi w.lizzy baugh.o dina/pr mitziess ional s/kdo qi/gf r_cal culat or Not Available [facility] (Lab) [address] [place], [address], 12/25/2023 20:11:26 12/25/19 24 12/25/2023 BASIC METAB OLIC PANEL calcium 9.5 mg/dL 8.4-10 .2 Not Available [facility] (Lab) [address], [place], [address], 12/25/2023 20:11:26 Result Notes None recorded. Problems Name Problem SNOMED Code Status Onset Date Resolution Date Notes Provider Name and Address Organization Details Recorded Time Chronic back pain 191713421 Active Not Available [facility] 3 08:09:09 History of transient ischemic attack 914217845 Active Not Available [facility] 3 08:09:09 Blood glucose outside reference range 642548689 Completed Not Available [facility] 3 08:09:09 Insomnia 714186980 Completed Not Available [facility] 3 08:09:09 Asthma 205703668 Active Not Available [facility] 3 08:09:09 Anxiety disorder 900923410 Active Not Available [facility] 3 08:09:09 Low back pain 705158955 Completed Not Available [facility] 3 08:09:09 Exercise- induced asthma 51811108 Completed Not Available [facility] 3 08:09:09 Vitamin D deficienc y 32948447 Active Not Available [facility] 3 08:09:09 Osteoarth ritis 526589554 Active Not Available [facility] 3 08:09:09 Anxiety 36792434 Completed Rishi Pearce MD [address] [facility], [address], [place], [address] , [place] [facility] 3 14:47:23 Upper respirato ry infection 84462698 Completed Not Available [facility] 3 08:09:09 Hyperlipi demia 59137424 Active Not Available [facility] 3 08:09:09 Essential hypertens ion 23708956 Active Not Available [facility] 3 08:09:09 Prediabet es 413449744 Active Not Available [facility] 3 08:09:09 Hyperglyc emia 43055671 Completed Not Available [facility] 3 08:09:10 Major depressiv e disorder 209724698 Active 2022 Darlene Choi MD [address], [address], [place], [address] , [facility] 3 15:02:39 Dementia 86264895 Active 2022 Darlene Choi MD [address], [address], [place], [address] , [facility] 3 15:06:01 Sleep apnea 77495560 Active 2022 Darlene Choi MD [address], [address], [place], [address] , [facility] 3 14:14:10 Cough 51467023 Active 2022 Darlene Choi MD [address], [address], [place], [address] , [facility] 3 12:05:36 Memory impairmen t 910558288 Active 2023 Darlene Choi MD [address], [address], [place], [address] , [facility] 4 12:22:43 Thrombocy tosis 3116114 Active 2023 Darlene Choi MD [address], [address], [place], [address] , [facility] 4 18:07:29 Hyponatre kendrick 66549207 Active 2023 Darlene Choi MD [address], [address], [place], [address] , [employer] 4 18:07:37 Hypokalem ia 52351976 Active 2023 MD Arnoldo Haq, [address], [place], [address] , [facility] 4 18:07:43 Pain of left knee joint 45216905981 4107 Active 2023 Darlene Choi MD [address] [facility], [facility] [address], [place], [address] , [place] [facility] 4 14:11:34 Notes:Darlene Choi MD [facility] home sleep study 08/01/23 AHI = 68, supine AHI = 70 Medical History: TIA Dementia Migraine Anxiety/Depression Rhinitis Obesity with very severe OSAHS, AHI = 68, 08/01/23 Hypertension Hyperlipidemia Prediabetes Vit D insufficiency Low back pain OA Problem Notes None recorded. Medical Equipment None Reported. Allergies Allergen ID Allergen Name Allergen Category Reaction Reaction Severity Criticality Documentation Date Start Date Code Code System Note Provider Name and Address Organization Details Recorded Time Macrobid medicatio n other Not available Not available 11/15/2022 73650 1 RxNorm SWELL ING HANDS AND THROA T Not Available [facility] 3 08:12:14 00961 Effexor medicatio n headache mild Not available 11/15/2022 69902 2 RxNorm unsur e if aller gy Not Available [facility] 3 08:12:14 23606 Product containin g angiotens in-conver ting enzyme inhibitor (product) medicatio n cough Not available Not available 11/15/2022 29061 009 SNOMED Not Available [facility] 3 08:12:14 Medications Name Sig Start Date Stop Date Status Note LastModified by Organization Details LastModified Time losartan 50 mg tablet Take 1 tablet every day by oral route. 09/25 completed Not Available Not Available Not Available atorvastati n 40 mg tablet TAKE 1 TABLET BY MOUTH IN THE EVENING 01/05 completed Not Available Not Available Not Available prednisone 10 mg tablet active Not Available Not Available Not Available donepezil 5 mg tablet TAKE 1 TABLET BY MOUTH EVERY DAY AT BEDTIME active Not Available Not Available No t Available trazodone 50 mg tablet Take 1 tablet every day by oral route at bedtime. active Not Available Not Available No t Available azithromyci n 250 mg tablet TAKE 2 TABLETS BY MOUTH ON DAY 1, AND THEN TAKE 1 TABLET BY MOUTH ONCE A DAY ON DAY 2 THROUGH DAY 5 active Not Available Not Available No t Available alprazolam 1 mg tablet TAKE 1 TABLET BY MOUTH TWICE DAILY NEEDED active Not Available Not Available No t Available metoprolol succinate ER 50 mg tablet,exte nded release 24 hr Take 1.5 tablets every day by oral route for 30 days. 01/21 completed Not Available Not Available Not Available donepezil 10 mg tablet TAKE 1 TABLET BY MOUTH EVERY DAY AT BEDTIME active Not Available Not Available No t Available prednisone 20 mg tablet TAKE 3 TABLETS BY MOUTH DAILY FOR 3 DAYS, THEN TAKE 2 TABLETS DAILY BY MOUTH FOR 3 DAYS, THEN TAKE 1 TABLET BY MOUTH DAILY FOR 3 DAYS, THEN TAKE 1/2 TABLET BY MOUTH DAILY FOR 3 DAYS, THEN STOP. 09/25 completed Not Available Not Available Not Available sertraline 100 mg tablet TAKE 1 AND 1/2 TABLETS BY MOUTH ONCE DAILY active Not Available Not Available No t Available topiramate 25 mg tablet TAKE 1 TABLET BY MOUTH TWICE DAILY active Not Available Not Available No t Available acetaminoph en 300 mg-codeine 30 mg tablet TAKE 1 TABLET BY MOUTH EVERY 6 HOURS NEEDED active Not Available Not Available No t Available amlodipine 5 mg tablet TAKE ONE TABLET BY MOUTH ONCE DAILY active Not Available Not Available No t Available hydrocodone 10 mg-acetamin ophen 325 mg tablet TAKE ONE TABLET BY MOUTH EVERY 6 HOURS NEEDED for 30 days. active UDS negat kirk. Not Available Not Available Not Available tramadol 50 mg tablet Take 1 tablet every day by oral route as needed for 30 days. active Not Available Not Available No t Available risperidone 3 mg tablet TAKE 1 TABLET BY MOUTH ONCE DAILY AT BEDTIME 01/05 completed Not Available Not Available Not Available risperidone 2 mg tablet TAKE 1 TABLET BY MOUTH ONCE DAILY AT BEDTIME FOR 30 DAYS 07/11 completed Not Available Not Available Not Available meloxicam 7.5 mg tablet Take 1 tablet every day by oral route for 30 days. active Not Available Not Available No t Available losartan 100 mg-hydrochl orothiazide 25 mg tablet TAKE 1 TABLET BY MOUTH ONCE DAILY 08/27 completed Not Available Not Available Not Available alprazolam 0.5 mg tablet TAKE 1 TABLET BY MOUTH ONCE DAILY AT 3PM 01/05 completed Not Available Not Available Not Available lorazepam 0.5 mg tablet 1/2 tablet PO in am and 1/2 tablet in pm wean down over 1 month until off. 05/08 completed Not Available Not Available Not Available amlodipine 10 mg tablet Take 1 tablet every day by oral route. 03/26 completed Not Available Not Available Not Available cephalexin 500 mg capsule TAKE 1 CAPSULE BY MOUTH EVERY 6 HOURS 08/01 completed Not Available Not Available Not Available simvastatin 20 mg tablet active Not Available Not Available Not Available buspirone 10 mg tablet TAKE 1 TABLET BY MOUTH THREE TIMES DAILY NEEDED active Not Available Not Available No t Available bupropion HCl 75 mg tablet TAKE 1 TABLET BY MOUTH IN THE MORNING FOR 1 WEEK THEN INCREASE TO 1 TAB TWICE DAILY IF NO SIDE EFFECTS 02/07 completed Not Available Not Available Not Available buspirone 7.5 mg tablet TAKE ONE TABLET BY MOUTH TWICE DAILY 04/23 completed Not Available Not Available Not Available diclofenac sodium 75 mg tablet,radha yed release TAKE 1 TABLET BY MOUTH TWICE DAILY NEEDED active Not Available Not Available No t Available montelukast 10 mg tablet Take 1 tablet every day by oral route for 30 days. 05/31 completed Not Available Not Available Not Available hydrochloro thiazide 25 mg tablet TAKE 1 TABLET BY MOUTH ONCE DAILY active Not Available Not Available No t Available Aspir-81 mg tablet,radha yed release Take 1 tablet every day by oral route for 30 days. 06/24 completed Not Available Not Available Not Available albuterol sulfate HFA 90 mcg/actuati on aerosol inhaler INHALE 2 PUFFS BY MOUTH EVERY 4 HOURS NEEDED active Not Available Not Available No t Available topiramate 100 mg tablet TAKE 1 TABLET BY MOUTH ONCE DAILY active Not Available Not Available No t Available losartan 100 mg tablet TAKE 1 TABLET BY MOUTH ONCE DAILY active Not Available Not Available No t Available fluoxetine 20 mg capsule Take 1 capsule every day by oral route. active Not Available Not Available No t Available fluticasone propionate 50 mcg/actuati on nasal spray,suspe nsion USE 2 SPRAY(S) IN EACH NOSTRIL ONCE DAILY active Not Available Not Available No t Available sertraline 50 mg tablet TAKE 1 TABLET BY MOUTH ONCE DAILY IN THE MORNING active Not Available Not Available No t Available doxycycline hyclate 100 mg tablet TAKE 1 TABLET BY MOUTH TWICE DAILY FOR 7 DAYS 09/25 completed Not Available Not Available Not Available valsartan 160 mg tablet TAKE 1 TABLET BY MOUTH ONCE DAILY 01/05 completed Not Available Not Available Not Available escitalopra m 20 mg tablet Take 1 tablet every day by oral route for 30 days. 03/26 completed Not Available Not Available Not Available bupropion HCl XL 300 mg 24 hr tablet, extended release 11/04 completed Not Available Not Available Not Available bupropion HCl XL 150 mg 24 hr tablet, extended release TAKE 1 TABLET BY MOUTH ONCE DAILY active Not Available Not Available No t Available ORTHOVISC 30 mg/2 mL intra-artic ular syringe 06/24 completed Not Available Not Available Not Available sodium chloride 1,000 mg soluble tablet TAKE 1 TABLET BY MOUTH TWICE DAILY FOR 14 DAYS 02/21 completed Not Available Not Available Not Available calcipotrie ne-betameth asone 0.005 %-0.064 % topical ointment 06/24 completed Not Available Not Available Not Available Vitamin D3 10 mcg (400 unit) capsule TAKE 3 CAPSULES BY MOUTH ONCE DAILY active Not Available Not Available No t Available Zostavax (PF) 19,400 unit/0.65 mL subcutaneou s suspension 05/17 completed Not Available Not Available Not Available aripiprazol e 2 mg tablet TAKE 1 TABLET BY MOUTH ONCE DAILY active Not Available Not Available No t Available quetiapine 50 mg tablet TAKE 1 TABLET BY MOUTH AT BEDTIME 01/05 completed Not Available Not Available Not Available Symbicort 80 mcg-4.5 mcg/actuati on HFA aerosol inhaler INHALE TWO PUFFS BY MOUTH TWICE DAILY active Not Available Not Available No t Available Breo Ellipta 100 mcg-25 mcg/dose powder for inhalation Inhale 1 puff every day by inhalatio n route. 05/17 completed Not Available Not Available Not Available potassium chloride ER 20 mEq tablet,exte nded release TAKE 1 TABLET BY MOUTH ONCE DAILY active Not Available Not Available No t Available Fluvirin 2802-2163 (PF) 45 mcg (15 mcg x 3)/0.5 mL IM syringe active Not Available Not Available N ot Available Fluarix Quad 2380-3954 (PF) 60 mcg (15 mcg x 4)/0.5 mL IM syringe 06/24 completed Not Available Not Available Not Available Ubrelvy 50 mg tablet 1 po qday prn headache 12/24 completed Not Available Not Available Not Available [facility] ODT 75 mg disintegrat ing tablet DISSOLVE 1 TABLET BY MOUTH ONCE DAILY NEEDED FOR MIGRAINE HEADACHE; A SINGLE DOSE active Not Available Not Available No t Available Vitals Date Recorded Body height Body mass index (BMI) Body weight Body temperature Heart rate Oxygen saturation Oxygen saturation in Arterial blood by Pulse oximetry Systolic blood pressure Diastolic blood pressure Provider Name and Address Organization Details Last Updated DateTime 4 170.18 cm 32.7 kg/m2 59416.8 1 g 97.3 [degF] 90 /min 96 % 96 % 126 mm[Hg] 82 mm[Hg] Chauncey Burrows RN [facility] 4 14:00:19 Date Recorded Body height Body mass index (BMI) Body weight Body temperature Heart rate Oxygen saturation Oxygen saturation in Arterial blood by Pulse oximetry Systolic blood pressure Diastolic blood pressure Provider Name and Address Organization Details Last Updated DateTime 4 170.18 cm 32.9 kg/m2 14067.4 g 96.4 [degF] 89 /min 91 % 91 % 128 mm[Hg] 76 mm[Hg] Ofelia Santillan RN [facility] 4 14:06:00 Date Recorded Body height Body mass index (BMI) Body weight Body temperature Heart rate Oxygen saturation Oxygen saturation in Arterial blood by Pulse oximetry Systolic blood pressure Diastolic blood pressure Provider Name and Address Organization Details Last Updated DateTime 4 170.18 cm 33.4 kg/m2 82176.1 7 g 98.4 [degF] 82 /min 96 % 96 % 160 mm[Hg] 96 mm[Hg] Ofelia Santillan RN [facility] 4 12:30:07 Social History Question Answer Notes LastModified by Organizat ion Details LastModified Time Tobacco Smoking Status Never Smoker Not Available [facility] 11/15/2022 08:06:03 Do You Have An Advance Directive? No [id number] Information not available 11/15/2022 What Is Your Level Of Alcohol Consumption? None MIGRATION.[id number] Information not available 11/15/2022 What Is Your Level Of Caffeine Consumption? Heavy MIGRATION.[id number] Information not available 11/15/2022 How Much Tobacco Do You Chew? None MIGRATION.[id number] Information not available 11/15/2022 In The 14 Days Before Symptom Onset, Have You Had Close Contact With A Laboratory-confir med COVID-19 While That Case Was Ill? No MIGRATION.[id number] Information not available 11/15/2022 In The 14 Days Before Symptom Onset, Have You Had Close Contact With A Person Who Is Under Investigation For COVID-19 While That Person Was Ill? No MIGRATION.[id number] Information not available 11/15/2022 What Type Of Diet Are You Following? REGULAR MIGRATION.[id number] Information not available 11/15/2022 Which Illicit Or Recreational Drugs Have You Used? NO MIGRATION.[id number] Information not available 11/15/2022 Do You Or Have You Ever Used E-cigarettes Or Vape? Never Used Electronic Cigarettes MIGRATION.[id number] Information not available 11/15/2022 What Is Your Occupation? RETIRED MIGRATION.[id number] 8078 Information not available 11/15/2022 Do You Or Have You Ever Used Smokeless Tobacco? Never Used Smokeless Tobacco MIGRATION.577400 2752 Information not available 11/15/2022 Do You Use Any Illicit Or Recreational Drugs? No MIGRATION.[id number] 2229 Information not available 11/15/2022 Do You Use Sunscreen Routinely? No MIGRATION.[id number] 4881 Information not available 11/15/2022 Has Tobacco Cessation Counseling Been Provided? No MIGRATION.476950 0090 Information not available 11/15/2022 Have You Recently Traveled Abroad? No MIGRATION.[id number] 7069 Information not available 11/15/2022 Do You Have Any Dietary Restrictions? No MIGRATION.043250 0779 Information not available 11/15/2022 Do You Or Have You Ever Used Any Other Forms Of Tobacco Or Nicotine? No MIGRATION.896019 1136 Information not available 11/15/2022 Sex: Unknown Functional Status Question Answer Note LastModified by Organizat ion Details LastModified Time What is your exercise level? Moderate [id number] Information not available 11/15/2022 Mental Status None recorded. Family History Relationship Description Onset Age of this Age Resolved Age Notes LastModified by Organization Details LastModified Time Mother Family history of malignant neoplasm [id number] Not available 11/15/2022 08:06:35 Father Family history of malignant neoplasm [id number].[id number] Not available 11/15/2022 08:06:35 Medical History Condition Response BLINDNESS N RHEUMATIC FEVER N KIDNEY STONES N BLADDER PROBLEMS N MRSA N OTHER # 1 N POLIO N LUNG DISEASE/DISORDER N RADIATION / CHEMOTHERAPY N COPD N Other # 2 N BLOOD DISEASES N SURGERY N EAR OR HEARING PROBLEMS N MUMPS N FEMALE PROBLEMS / INFECTIONS N BOWEL PROBLEMS N DEPRESSION (INCLUDING POST ) Y STROKE/TIA N THYROID DISEASE N ULCERS N BENIGN PROSTATIC HYPERPLASIA N MEASLES N CERVICALGIA N TB SKIN TEST N MYOCARDIAL INFARCTION N PARAPELGIA N OBESITY N GERD/NAUSEA N ANEURYSM N URINARY/BLADDER/KIDNEY PROBLEMS N CORONARY ARTERY DISEASE (CAD) N MENIERE'S DISEASE N ADDICTION CONCERNS N ENDOMETRIOSIS N USE OF BLOOD THINNERS N SKIN PROBLEMS N EMPHYSEMA N GASTROINTESTINAL DISORDER N MUSCLE,JOINT OR BONE PROBLEMS N GASTROINTESTINAL BLEEDING N BLOOD CLOTS N ASTHMA N CATARACTS N ERECTILE DYSFUNCTION N GI PROBLEMS N CHF N Low Testosterone N NEUROPATHY N INFERTILITY N AIDS/HIV N FRACTURES N CHEMOTHERAPY / RADIATION N VISION/EYE PROBLEMS N LIVER DISEASE N MALE HYPOGONADISM N HYPERTENSION Y ANXIETY DISORDER Y BLOOD TRANSFUSION N ANEMIA/BLOOD DISORDER N CHRONIC EAR INFECTIONS N BRONCHITIS N TUBERCULOSIS N GLAUCOMA N FOOT PROBLEM N DIVERTICULITIS N SLEEP APNEA N CHICKENPOX N ALLERGIES/HAYFEVER N INFECTIOUS DISEASE N PROSTATE N HEART ARRHYTHMIA N INSOMNIA N HIGH CHOLESTEROL / HYPERLIPIDEMIA N EYE PROBLEMS N HYPERTHYROIDISM N EATING DISORDER N NEUROLOGICAL PROBLEMS N EDEMA N CHRONIC PAIN SYNDROME N HYPOTHYROIDISM N CONSTIPATION N CAROTID BLOCKAGE N BACK / NECK PROBLEMS N HAVE YOU BEEN HOSPITALIZED OR SEEN IN [facility] IN THE PAST YEAR ? N ATHEROSCLEROSIS N BREAST PROBLEMS N DIALYSIS N ECZEMA N FIBROMYALGIA N OSTEOPOROSIS N ARTHRITIS Y NO SIGNIFICANT PAST MEDICAL HISTORY N APPENDICITIS N DIABETES, TYPE N BAD TEETH N HEARTBURN / REFLUX N ADD/ADHD N AUTISM SPECTRUM DISORDER (ASD) N HEPATITIS / LIVER DISEASE N PULMONARY DISEASE N GOUT N SLEEP DISORDER N ALZHEIMER'S DISEASE N PAIN N DEMENTIA N HERPES N SEIZURES/EPILEPSY N HEADACHES/MIGRAINES N VASCULAR DISEASE N PACEMAKER N DIZZINESS N HEART DISEASE/HEART PROBLEMS N KIDNEY DISEASE N SCARLET FEVER N MULTIPLE SCLEROSIS N DEVELOPMENTAL OR BEHAVIORAL DISORDERS N MENTAL DISORDER/ILLNESS N CANCER: SPECIFY N CARDIAC ARRHYTHMIA N PNEUMONIA N ATRIAL FIBRILLATION N Gall Stones N PULMONARY EMBOLISM N AUTOIMMUNE DISEASE N Gynecological HistoryNo gynecological history recorded. Obstetrics History GPAL:G 0 P 0 0 0 0 Immunizations Vaccine Type Date Status Note Provider Nam e and Address Organization Details Recorded Time Influenza, high-dose, quadrivalent, PF 3 completed Chauncey Burrows RN [facility], [facility] 07/11/2023 16:26:07 Influenza, split virus, trivalent, PF 3 completed Not Available [facility] 11/15/2022 08:11:56 SARS-COV-2 (COVID-19) vaccine, UNSPECIFIED 1 completed Not Available [facility] 11/15/2022 08:11:57 Influenza, split virus, quadrivalent, preservative 7 completed Not Available [facility] 11/15/2022 08:11:57 SARS-COV-2 (COVID-19) vaccine, UNSPECIFIED 1 completed Not Available [facility] 11/15/2022 08:11:57 Influenza, split virus, trivalent, preservative 5 completed Not Available [facility] 11/15/2022 08:11:57 Pneumococcal conjugate PCV 13 5 completed Not Available [facility] 11/15/2022 08:11:57 Tdap 2 completed Not Available [facility] 11/15/2022 08:11:57 Influenza, high-dose, quadrivalent, PF 2 completed Not Available [facility] 11/15/2022 08:11:57 Influenza, high-dose, quadrivalent, PF 1 completed Not Available [facility] 11/15/2022 08:11:58 Influenza, split virus, quadrivalent, PF 8 completed Not Available [facility] 11/15/2022 08:11:58 Influenza, split virus, quadrivalent, PF 4 completed Not Available [facility] 11/15/2022 08:11:58 Past Encounters Encounter ID Performer Location Encounter Start Date Encounter Closed Date Diagnosis/Indication Diagnosis SNOMED-CT Code Diagnosis ICD10 Code Diagnosis Note [id number] [facility] [address] [facility] [address] [place] [address] 12/09/2020 00:00:00 12/13/2020 18:50:21 [id number] [facility] [address] [place] [address] 03/24/2021 00:00:00 03/24/2021 10:55:57 [id number] [facility] [place] [address] [place] [address] 08/01/2021 00:00:00 08/01/2021 14:22:20 [id number] [facility] [place] [address] [place] [address] 09/08/2021 00:00:00 09/08/2021 12:06:25 [id number] [facility] [place] [address] [place] [address] 09/21/2021 00:00:00 09/21/2021 10:57:44 [id number] [facility] [place] [address] [place] [address] 04/10/2022 00:00:00 04/10/2022 16:06:31 [id number] [facility] [place] [address] [place] [address] 05/16/2022 00:00:00 05/16/2022 15:45:11 [id number] [facility] [place] [address] [place] [address] 08/16/2022 00:00:00 08/16/2022 15:08:48 [id number] [facility] [place] [address] [place] [address] 10/20/2022 00:00:00 10/20/2022 11:18:38 [id number] GARRICK Art [facility] [place] [address] [place] [address] 01/05/2023 14:21:43 01/05/2023 15:09:02 Hyperlipidemia 09800137 E78.5 Not tolerating atorvastat in, will d/c for now. Labs looked normal.Saw l recheck labs in 6 months. Anxiety 12509920 F41.9 Now followed by Ofelia Moise (psychiatr y).Continu e Sertraline 200mg daily, Risperidon e 2mg qhs and alprazolam 1mg BID PRN. Memory impairment 767600 006 R41.3 Started on donepezil 5mg daily.Psyc hiatry recommende d she see neurology to evaluate. [id number] Darlene Choi MD [facility] [address] [facility] [address] [place] [address] 02/21/2023 14:23:47 02/21/2023 15:30:50 Major depressive disorder 192519088 F32.9 no si/hishe is seeing psychiatry every 2 monthsrefi ll givenf/u in 4 weeks Essential hypertension 67451378 I10 will monitor closely Prediabetes 440902074 R7 3.03 Vitamin D deficiency 347 99808 E55.9 Dementia 94459241 F03.90 on donepezil 5 mg dailywill establish with neurology in Dec Dysuria 45846816 R30.0 Weight gain 1890967 R63. 5 [id number] Darlene Choi MD [facility] [address] [facility] [address] [place] [address] 04/05/2023 15:43:40 04/05/2023 16:12:59 Anxiety 99608653 F41.9 Essential hypertension 00308259 I10 [id number] Darlene Choi MD [facility] [address] [facility] [address] [place] [address] 07/11/2023 14:00:18 07/11/2023 14:25:01 Sleep apnea 79886749 G47.30 snoring, gasping, witnessed apneic events, excessive daytime somnolence sleep study ordered Administra tion of influenza vaccine 58173983 Z23 Headache 77823860 R51.9 ? htn vs osasleep study orderedche ck home bps 2x per week and f/u in 4 weekssampl es given of ubrelvy Essential hypertension 52972818 I10 elevated todayconti nue current medscheck home bps 2x per weekf/u in 4 weeks [id number] Darlene Choi MD [facility] [place] [address] [place] [address] 08/20/2023 11:55:11 08/20/2023 12:09:21 Essential hypertension 89021784 I10 improvedco ntinue home bps 2x per weekf/u in 4 weeks Cough 11323402 R05.9 supportive carecall/r eturn if no improvemen t in 1-2 days or sooner if neededrevi ewed s/s that warrant urgent/uziel rgent eval in meantime [id number] Darlene Choi MD [facility] [place] [address] [facility] [address] [place] [address] 09/25/2023 12:08:32 09/25/2023 12:45:16 Essential hypertension 86009271 I10 improvedco ntinue home bps 2x per weekf/u in 3 months Hyperlipidemia 93571212 E78.5 Prediabetes 120332927 R7 3.03 Memory impairment 263765 006 R41.3 G43.[address] labs [address] neuro [address] Hoskins [id number] Darlene Choi MD [facility] [place] [address] [facility] [address] [place] [address] 10/23/2023 14:37:34 11/15/2023 14:46:54 [id number] Darlene Choi MD [facility] [place] [address] [facility] [address] [place] [address] 11/15/2023 14:27:09 11/15/2023 15:31:03 [id number] Darlene Choi MD [facility] [place] [address] [facility] [address] [place] [address] 12/25/2023 13:55:36 12/25/2023 14:18:36 Essential hypertension 13298538 I10 improvedco ntinue home bps 2x per weekcheck bmp to monitor sodiumf/u in 6 months Hypokalemia 33909167 E87 .6 bmp as aboverefil l given Dementia 02107848 F03.90 stable refill given Renewal of prescription 603409899 Z76.0 Pain of le ft knee joint 3617389538 88139 M25.562 uses this very sparinglyr efill givenPt understand s this medication has risk for abuse/depe ndence and agrees to take it only as prescribed and to guard from loss/theft [place] prescript[place] on monitoring website reviewed [id number] Manoj LOYDA SanchezP-C [facility] [address] [place] [address] 03/05/2024 14:11:02 03/05/2024 14:25:15 [id number] LOYDA HooverP-C [facility] [address] [address] 05/13/2024 13:59:14 05/13/2024 14:24:39 Essential hypertension 64263323 I10 bp 128/76, 89 some sob more recently, uses inhalercur rently CARPIO, not bearable [id number] [facility] [address] [address] 2024 14:02:01 2024 14:29:51 [id number] XAVIER Hoovre-Laxmi [address] [address] 07/02/2024 12:10:38 07/02/2024 12:46:52 Asthma 142971833 J45.909 was using symbicort in the past with no ASE, stoppedref ill symbicort, albuterolm outh breathing- encouraged use of fluticason e/antihist amine [id number] JING Junior [facility] [address] [address] 08/13/2024 13:51:27 08/13/2024 15:08:30 Health Concerns Section Related Observation LastModified by Organization Detai ls LastModified Time None Recorded Concern Status LastModified by Organization Details LastModified Time None Recorded Advance Directives Directive N: Payers Encounter Date Sequence Insurance Name Policy Number Policy Kay Covered Member ID Kay Member ID Guarantor Name 11/15/2023 1 [employer] (MEDICARE REPLACEMENT/A DVANTAGE - PPO) Jacqueline Brantley [id number] Jacqueline [facility] 12/25/2023 1 [employer] (MEDICARE REPLACEMENT/A DVANTAGE - PPO) Jacqueline Brantley [id number] Jacqueline [facility] 03/05/2024 1 [employer] (MEDICARE REPLACEMENT/A DVANTAGE - PPO) Jacqueline Brantley [id number] Jacqueline [facility] 05/13/2024 1 [employer] (MEDICARE REPLACEMENT/A DVANTAGE - PPO) Jacqueline Fernandezm [id number] Jacqueline [facility] 07/02/2024 1 [employer] (MEDICARE REPLACEMENT/A DVANTAGE - PPO) Jacqueline Brantley [id number] Jacqueline [facility] Notes Date Note Type Note Provider Name and Address Organization Details Recorded Time 12/25/2023 text/html Here to f/u, she wonders she has a UTI (has some burning on occ with urination). She is seeing psychiatry every 2 months (major depressive disorder, dementia). She has upcoming appt with neurology in August to establish care. She was admitted to [facility] after overdose attempt that she attributes to some confusion-she had mixed her medication up and her sodium level was off. She is feeling better now, no si/hi. She is using a pill workforce planner to manage her meds. Her stressors include her 's terminal illness. She has a sister who was a good support system at times. update 04/05/23: concerned about her weight, otherwise feeling well update 07/11/23: Here risperidone was changed to aripiprazole. Mood is doing well, no further weight gain but she is having AM headache. Tylenol and ibuprofen do eventually work but it takes several hours to kick. She snores at night, gasping, witnessed apnea, excessive daytime somnolence. update 08/20/23: Has had cough and congestion x 7 days, getting worse. Using otc antihistamine and albuterol hfa. Having yellow sputum and wheezing. Home blood pressures have been normal . update 09/25/23: Home blood pressures are normal . She is going to reach out to pulmonary to discuss her sleep study. update 12/25/23: No elevated home blood pressures. Her mood is doing well and memory is stable. Left knee painful, has not had refill of tylenol 3 in some time, would like a few tabs to have on hand. Usually uses tylenol, ibuprofen and topicals. Darlene Choi MD [address], [employer], [place], [address], [facility] [employer] 12/25/2023 14:15:19 05/13/2024 text/html pt is here for f/u MARINE Carrizales [address], [employer], [place], [address], [facility] [employer] [facility] [employer] 05/13/2024 14:23:09 07/02/2024 text/html pt is here for f/u MARINE Carrizales [address], [place] [address], [place], [address], [employer] [facility] [employer] [facility] 07/02/2024 12:50:34 OBGyn Episode No OBEpisode recorded.
--- NOTE | 2024-10-14 13:26 | WPDSIXMINUTE ---
Six Minute Walk Procedure Procedure Performed Pulmonary Stress Test (6 min walk) Six Minute Walk Six Minute Walk: This is a 6 minute walk test. The test was performed and interpreted in accordance with the 2014 ERS/ATS task force guidelines. Findings: The patient's resting room air oxygen saturation measured by pulse oximetry was 92%, the heart rate was 85 bpm, and the modified Juanjo dyspnea score was 3. Patient ambulated for 274 meters and oxygen saturation remained 92 to 98%. At the end of the study the heart rate was 103 bpm and the modified Juanjo dyspnea score was 8. The patient did not qualify for supplemental oxygen at rest or with ambulation. There are no prior studies for comparison.
--- NOTE | 2024-10-14 13:27 | WPDPFTINT ---
PFT Procedure Performed PFT Procedure Performed Spirometry with Pre/Post Bronchodilator Plethysmography (Lung Vol) Diffusing Cap (DLCO) Flow Vol Loop PFT Interpretation This is a pulmonary function test with pre and post-bronchodilator spirometry, plethysmography and diffusing capacity. The test was performed and results interpreted in accordance with the 2019 and 2005 ATS/ERS Task Force guidelines respectively using the Global Lung Function Initiative-2012 reference equations. Patient demonstrated good effort and cooperation. Reproducibility criteria were met. The quality of the pre bronchodilator spirometry maneuver was Grade B and post bronchodilator spirometry maneuver was Grade A. Of note, patient did struggle with forced peak expiration on expiratory limb of all loops despite coaching. Patient was short of breath throughout all testing. Findings: Spirometry: The contour the inspiratory and expiratory flow tracing are normal. The pre bronchodilator FVC is 3.01 L, 93% predicted. The pre bronchodilator FEV1 is 2.47 L, 99% predicted. The pre bronchodilator FEV1: FVC ratio is 82%. The post bronchodilator FVC is 3.32 L, representing a 10% increase. The post bronchodilator FEV1 is 2.51 L, representing 1% increase. The post bronchodilator FEV1: FVC ratio 75%. Plethysmography: The total lung capacity is 4.76 L, 87% predicted. The functional residual capacity is 2.40 L, 76% predicted. The residual volume is 1.67 L, 73% predicted. Diffusing capacity: The diffusing capacity unadjusted for hemoglobin and carboxyhemoglobin is 16.7, 76% predicted. The diffusing capacity adjusted for alveolar volume is 4.43, 106% predicted. Impression: The spirometry is normal without evidence of an obstructive abnormality. There is no significant improvement after inhaling a single dose of albuterol. The lung volumes are normal. The diffusing capacity is normal. There are no prior studies for comparison
== END 2024-10-14 07:49 | disposition home or self-care (01) ==
PROVIDERS: PCP Psychiatry & Neurology Neurology; Visit Provider Nurse Practitioner Family
DX: R06.09 Other forms of dyspnea (principal)
CPT/HCPCS: 94060; 94726; 94729

== ENCOUNTER 2024-12-19 13:37 | Outpatient (CLI) | payer MEDICARE, SELFPAY ==
--- NOTE | ~2024-12-19 | CT_ITS ---
CT Scan of the Chest without Contrast: Clinical Indication: Shortness of breath Technique: Contiguous sections were acquired throughout the chest without intravenous contrast. Dose reduction technique was used on this scan by utilizing automated exposure control and iterative recon struction technique. The dose-length product (DLP) was 351.98 mGy-cm. Findings: There is no evidence of any significant mediastinal, hilar or axillary lymphadenopathy. The mediastin al soft tissues appear normal. There is no evidence of pleural or pericardial effusion. There is minimal biapical scarring. Calcified right lower lobe granuloma present. There is focal chanel pheral groundglass opacity/interstitial prominence in the anterolateral left lower lobe. Images through the upper abdomen reveal no abnormalities. Impression: Focal groundglass opacity/interstitial prominence of the anterolateral left lower lobe. This could re flect focal chronic postinflammatory change or scarring, or possibly focal acute pneumonitis. Reviewed, dictated and finalized at [facility]. Impression: Focal groundglass opacity/interstitial prominence of the anterolateral left low er lobe. This could reflect focal chronic postinflammatory change or scarring, or possibly focal acute pneumonitis.
--- OUTSIDE RECORDS SUMMARY | 2024-12-19 13:41 | XMS_ITS | Data Portability ---
Author Organization [facility] [email or web address], Main Office Address [address] [place] [address] Assessment No assessment recorded. Plan of Treatment Reminders Order Date Submit Date Provider Last Modified By Organization Details Last Modified Time Details Appointments Follow Up 15 2024 01:00P JING Rios Not available Not available Not available Lab vitamin D, 25-hydrox y, total, serum 2024 025 [facility], [address] [place], [address], 12/18/2024 11:19:23 HbA1c (hemoglob in A1c), blood 2024 025 [facility], [address] [place], [address], 12/18/2024 11:19:23 CBC w/ auto diff 2024 025 [facility] Orders, [address] [place], [address], 12/18/2024 11:19:22 lipid panel, serum 2024 025 [facility] Orders, [address] [place], [address], 12/18/2024 11:19:22 hepatic function panel, serum 2024 025 [facility] Orders, [address] [place], [address], 12/18/2024 11:19:22 CMP, serum or plasma 2024 025 [facility] Add On Lab Orders, [address], [place], [address], 12/18/2024 11:19:22 BMP, serum or plasma 2023 024 JUAN CARLOS Not available 12/25/2023 20:11:26 Referral None recorded. Procedures None recorded. Surgeries None recorded. Imaging None recorded. Medication Orders acetamino phen 300 mg-codein e 30 mg tablet 2024 025 [facility] [address], [address], [place], [address], 12/03/2024 14:38:00 albuterol sulfate HFA 90 mcg/actua tion aerosol inhaler 2023 024 [facility] [address], [address] , [place], [address], 07/02/2024 12:46:12 Symbicort 80 mcg-4.5 mcg/actua tion HFA aerosol inhaler 2023 024 [facility] [address], [address], [place], [address], 12/03/2024 14:07:37 acetamino phen 300 mg-codein e 30 mg tablet 2023 024 [facility] [address], [address] , [place], [address], 12/03/2024 14:05:29 donepezil 5 mg tablet 2023 024 [facility] [address], [address] , [place], [address], 12/25/2023 14:11:10 losartan 100 mg tablet 2023 024 [facility] [address], [address] , [place], [address], 12/25/2023 14:11:05 hydrochlo rothiazid e 25 mg tablet 2023 024 [facility] [address], [address] , [place], [address], 12/25/2023 14:11:06 bupropion HCl XL 150 mg 24 hr tablet, extended release 2023 024 [facility] [address], [address] , [place], [address], 12/25/2023 14:11:08 aripipraz ole 2 mg tablet 2023 024 [facility] [address], [address] [facility], [place], [address], 12/25/2023 14:11:06 sertralin e 100 mg tablet 2023 024 [facility] [address] [facility], [place], [address], 12/03/2024 14:07:31 potassium chloride ER 20 mEq tablet,ex tended release 2023 024 [facility] [address]25, [address] [facility], [place], [address], 12/25/2023 14:11:05 Patient TargetsNo targets recorded. Patient InstructionsNo instructions recorded. Reason for Referral None Reported. Results Created Date Observation Date Name Description Value Unit Range Abnormal Flag Note LastModifiedBy Organization Detail LastModifiedTime 12/25/19 24 12/25/2023 BASIC METAB OLIC PANEL sodium 131 mmol/ L 137-14 5 low Not Available [facility] (Lab) [address] [place], [address], 12/25/2023 20:11:26 12/25/19 24 12/25/2023 BASIC METAB OLIC PANEL potassium 4.1 mmol/ L 3.5-5. 1 Not Available [facility] (Lab) [address] [place], [address], 12/25/2023 20:11:26 12/25/19 24 12/25/2023 BASIC METAB OLIC PANEL chloride 98 mmol/ L 98-107 Not Available [facility] (Lab) [address] [place], [address], 12/25/2023 20:11:26 12/25/19 24 12/25/2023 BASIC METAB OLIC PANEL carbon dioxide 26 mmol/ L 22-30 Not Available [facility] (Lab) [address] [place], [address], 12/25/2023 20:11:26 12/25/19 24 12/25/2023 BASIC METAB OLIC PANEL anion gap 11.1 mmol/ L 14-22 low Not Available [facility] (Lab) [address] [place], [address], 12/25/2023 20:11:26 12/25/19 24 12/25/2023 BASIC METAB OLIC PANEL glucose 93 mg/dL 70-99 Not Available [facility] (Lab) [address] [place], [address], 12/25/2023 20:11:26 12/25/19 24 12/25/2023 BASIC METAB OLIC PANEL BUN 12 mg/dL 8-19 Not Available [facility] (Lab) [address] [place], [address], 12/25/2023 20:11:26 12/25/19 24 12/25/2023 BASIC METAB OLIC PANEL creatinine 0.78 mg/dL 0.66-1 .25 Not Available [facility] (Lab) [address] [place], [address], 12/25/2023 20:11:26 12/25/19 24 12/25/2023 BASIC METAB OLIC PANEL GFR >60 Refer ence Range : [place] ge GFR Healt hy Adult : >60 [...] calcu lator is avail able on the [facility] websi te: [email or web address] :[email or web address] r_[email or web address] culat or Not Available [facility] (Lab) [address] [place], [address], 12/25/2023 20:11:26 12/25/19 24 12/25/2023 BASIC METAB OLIC PANEL calcium 9.5 mg/dL 8.4-10 .2 Not Available [facility] (Lab) [address] [place], [address], 12/25/2023 20:11:26 Result Notes None recorded. Problems Name Problem SNOMED Code Status Onset Date Resolution Date Notes Provider Name and Address Organization Details Recorded Time Chronic back pain 066631614 Active Not Available [facility] 3 08:09:09 History of transient ischemic attack 470392328 Active Not Available [facility] 3 08:09:09 Blood glucose outside reference range 084521776 Completed Not Available [facility] 3 08:09:09 Insomnia 696402609 Completed Not Available [facility] 3 08:09:09 Asthma 528667313 Active Not Available [facility] 3 08:09:09 Anxiety disorder 123332955 Active Not Available [facility] 3 08:09:09 Low back pain 200938033 Completed Not Available [facility] 3 08:09:09 Exercise- induced asthma 48689032 Completed Not Available [facility] 3 08:09:09 Vitamin D deficienc y 79918201 Active Not Available [facility] 3 08:09:09 Osteoarth ritis 836467587 Active Not Available [facility] 3 08:09:09 Anxiety 55439464 Completed iRshi Pearce MD [address], [place], [address] , [employer] [facility] [email or web address] 3 14:47:23 Upper respirato ry infection 60493944 Completed Not Available [facility] 3 08:09:09 Hyperlipi demia 62398095 Active Not Available [facility] 3 08:09:09 Essential hypertens ion 82298018 Active Not Available [facility] 3 08:09:09 Prediabet es 603934760 Active Not Available [facility] 3 08:09:09 Hyperglyc emia 19316816 Completed Not Available [facility] 3 08:09:10 Major depressiv e disorder 339803677 Active 2022 Darlene Choi MD [address], [address], [place], [address] , [employer] [facility] [employer] [place] 3 15:02:39 Dementia 29476120 Active 2022 Darlene Choi MD [address], [address], [place], [address] , [employer] [facility] [employer] 3 15:06:01 Sleep apnea 12995984 Active 2022 Darlene Choi MD [address], [address], [place], [address] , [facility] 3 14:14:10 Cough 36000917 Active 2022 Darlene Choi MD [address], [address], [place], [address] , [facility] 3 12:05:36 Memory impairmen t 812891578 Active 2023 Darlene Choi MD [address], [address], [place], [address] , [facility] 4 12:22:43 Thrombocy tosis 4260783 Active 2023 Darlene Choi MD [address], [address], [place], [address] , [facility] 4 18:07:29 Hyponatre kendrick 73805637 Active 2023 Darlene Choi MD [address], [address] [address], [place], [address] , [facility] 4 18:07:37 Hypokalem ia 24262874 Active 2023 Darlene Choi MD [address], [address] [address], [place], [address] , [facility] 4 18:07:43 Pain of left knee joint 98888257837 4107 Active 2023 Darlene Choi MD [address], [place] [address], [place], [address] , [facility] 4 14:11:34 Notes:Darlene Choi MD [facility] home sleep study 08/01/23 AHI = 68, [...] n other Not available Not available 11/15/2022 77991 1 RxNorm SWELL ING HANDS AND THROA T Not Available [facility] 3 08:12:14 23443 Effexor medicatio n headache mild Not available 11/15/2022 55196 2 RxNorm unsur e if aller gy Not Available [facility] 3 08:12:14 Product containin g angiotens in-conver ting enzyme inhibitor (product) medicatio n cough Not available Not available 11/15/2022 04269 009 SNOMED Not Available [facility] 3 08:12:14 Medications Name Sig Start Date Stop Date Status Note LastModified by Organization Details LastModified Time mucus relief max 1200mg tab TAKE 1 TABLET BY MOUTH TWICE DAILY 12/03 completed Not Available Not Available Not Available losartan 50 mg tablet Take 1 tablet [...] DAY ON DAY 2 THROUGH DAY 5 12/03 completed Not Available Not Available Not Available alprazolam 1 mg tablet TAKE 1 TABLET BY MOUTH TWICE DAILY NEEDED active Not Available Not Available No t Available metoprolol succinate ER 50 mg tablet,exte nded release 24 hr Take 1.5 tablets every day by oral route for 30 days. 01/21 completed Not Available Not Available Not Available donepezil 10 mg tablet TAKE 1 TABLET BY MOUTH ONCE DAILY AT BEDTIME active Not Available Not Available No t Available prednisone 20 mg tablet TAKE 2 TABLETS BY MOUTH ONCE DAILY FOR 5 DAYS active Not Available Not Available No t Available sertraline 100 mg tablet TAKE 1 AND 1/2 TABLETS BY MOUTH ONCE DAILY 12/03 completed Not Available Not Available Not Available topiramate 25 mg tablet TAKE 1 TABLET BY MOUTH TWICE DAILY 12/03 completed Not Available Not Available Not Available acetaminoph en 300 mg-codeine 30 mg [...] 1 TABLET BY MOUTH TWICE DAILY NEEDED 12/03 completed Not Available Not Available Not Available montelukast 10 mg tablet Take 1 [...] 2 SPRAY(S) IN EACH NOSTRIL ONCE DAILY 12/03 completed Not Available Not Available Not Available sertraline 50 mg tablet TAKE 1 [...] Available Not Available Not Available aripiprazol e 5 mg tablet TAKE 1 TABLET BY MOUTH ONCE DAILY active Not Available Not Available No t Available bupropion HCl XL 300 mg 24 [...] TAKE 3 CAPSULES BY MOUTH ONCE DAILY 12/03 completed Not Available Not Available Not Available Zostavax (PF) 19,400 unit/0.65 mL subcutaneou s suspension 05/17 completed Not Available Not Available Not Available aripiprazol e 2 mg tablet TAKE 1 TABLET BY MOUTH ONCE DAILY active Not Available Not Available No t Available quetiapine 50 mg tablet TAKE 1 TABLET BY MOUTH AT BEDTIME 01/05 completed Not Available Not Available Not Available Symbicort 160 mcg-4.5 mcg/actuati on HFA aerosol inhaler INHALE 2 PUFFS BY MOUTH EVERY 12 HOURS RINSE AND SPIT active Not Available Not Available No t Available Symbicort 80 mcg-4.5 mcg/actuati on HFA aerosol inhaler INHALE TWO PUFFS BY MOUTH TWICE DAILY 12/03 completed Not Available Not Available Not Available Breo Ellipta 100 mcg-25 mcg/dose powder for inhalation Inhale 1 puff every day by inhalatio n route. 05/17 completed Not Available Not Available Not Available potassium chloride ER 20 mEq tablet,exte nded release TAKE 1 TABLET BY MOUTH ONCE DAILY active Not Available Not Available No t Available Fluvirin 6620-9033 (PF) 45 mcg (15 mcg x 3)/0.5 mL IM syringe active Not Available Not Available N ot Available Fluarix Quad 6234-3058 (PF) 60 mcg (15 mcg x 4)/0.5 mL IM syringe 06/24 completed Not Available Not Available Not Available Ubrelvy 50 mg tablet 1 po qday prn headache 12/24 completed Not Available Not Available Not Available Nurtec ODT 75 mg disintegrat ing tablet DISSOLVE 1 TABLET BY MOUTH ONCE DAILY NEEDED FOR MIGRAINE HEADACHE; A SINGLE DOSE 12/03 completed Not Available Not Available Not Available Vitals Date Recorded Body height Body mass index (BMI) Body weight Body temperature Heart rate Oxygen saturation Oxygen saturation in Arterial blood by Pulse oximetry Systolic blood pressure Diastolic blood pressure Provider Name and Address Organization Details Last Updated DateTime 4 170.18 cm 32.7 kg/m2 30499.8 1 g 97.3 [degF] 90 /min 96 % 96 % 126 mm[Hg] 82 mm[Hg] Chauncey Burrows RN [facility] [employer] [facility] 4 14:00:19 Date Recorded Body height Body mass index (BMI) Body weight Body temperature Heart rate Oxygen saturation Oxygen saturation in Arterial blood by Pulse oximetry Systolic blood pressure Diastolic blood pressure Provider Name and Address Organization Details Last Updated DateTime 4 170.18 cm 32.9 kg/m2 13534.4 g 96.4 [degF] 89 /min 91 % 91 % 128 mm[Hg] 76 mm[Hg] Ofelia Santillan RN [facility] [employer] [facility] 4 14:06:00 Date Recorded Body height Body mass index (BMI) Body weight Body temperature Heart rate Oxygen saturation Oxygen saturation in Arterial blood by Pulse oximetry Systolic blood pressure Diastolic blood pressure Provider Name and Address Organization Details Last Updated DateTime 4 170.18 cm 33.4 kg/m2 34629.1 7 g 98.4 [degF] 82 /min 96 % 96 % 160 mm[Hg] 96 mm[Hg] Ofelia Santillan RN [facility] [employer] [facility] 4 12:30:07 Date Recorded Body height Body mass index (BMI) Body weight Body temperature Heart rate Oxygen saturation Oxygen saturation in Arterial blood by Pulse oximetry Pain severity - 0-10 verbal numeric rating [Score] - Reported Systolic blood pressure Diastolic blood pressure Provider Name and Address Organization Details Last Updated DateTime 5 170.18 cm 32.7 kg/m2 93252.0 1 g 98.4 [degF] 90 /min 96 % 96 % 0 120 mm[Hg] 70 mm[Hg] Nica Haley MA [facility] [employer] [facility] 5 14:05:10 Social History Question Answer Notes LastModified by Organizat ion Details LastModified Time Tobacco Smoking Status Never Smoker Not Available [employer] 11/15/2022 08:06:03 Do You Have An Advance Directive? No [id number] Information not available 11/15/2022 What Is Your Level Of Alcohol Consumption? None MIGRATION.37937 [id number] Information not available 11/15/2022 What Is Your Level Of Caffeine Consumption? Heavy MIGRATION.68559 48859 Information not available 11/15/2022 How Much Tobacco Do You Chew? None MIGRATION.07621 72179 Information not available 11/15/2022 In The 14 Days Before Symptom Onset, Have You Had Close Contact With A Laboratory-confi rmed COVID-19 While That Case Was Ill? No MIGRATION.49177 12281 Information not available 11/15/2022 In The 14 Days Before Symptom Onset, Have You Had Close Contact With A Person Who Is Under Investigation For COVID-19 While That Person Was Ill? No MIGRATION.12779 [id number] Information not available 11/15/2022 Are You Currently Employed? No Information not available 12/03/2024 What Type Of Diet Are You Following? REGULAR MIGRATION.37872 84271 Information not available 11/15/2022 Which Illicit Or Recreational Drugs Have You Used? NO MIGRATION.14751 56274 Information not available 11/15/2022 Do You Or Have You Ever Used E-cigarettes Or Vape? Never Used Electronic Cigarettes MIGRATION.27947 19269 Information not available 11/15/2022 What Is Your Occupation? RETIRED MIGRATION.65626 41536 Information not available 11/15/2022 Have There Been Any Changes To Your Family Or Social Situation? No Information not available 12/03/2024 Do You Use Insect Repellent Routinely? No Information not available 12/03/2024 Where Do You Live? SingleLevelHouse Information not available 12/03/2024 What Was The Date Of Your Most Recent Tobacco Screening? 12/03/2024 Information not available 12/03/2024 How Many Children Do You Have? 0 Information not available 12/03/2024 Do You Have Any Pets? Yes Information not available 12/03/2024 What Is Your Relationship Status? Information not available 12/03/2024 Do You Use Your Seat Belt Or Car Seat Routinely? Yes Information not available 12/03/2024 Do You Have Smoke And Carbon Monoxide Detectors In Your Home? Yes Information not available 12/03/2024 Are You Passively Exposed To Smoke? No Information not available 12/03/2024 Do You Or Have You Ever Used Smokeless Tobacco? Never Used Smokeless Tobacco MIGRATION.47412 [id number] Information not available 11/15/2022 Are There Any Smokers In Your House? No Information not available 12/03/2024 Do You Participate In Social Media? No Information not available 12/03/2024 Do You Feel Stressed (tense, Restless, Nervous, Or Anxious, Or Unable To Sleep At Night)? [id number] Information not available 12/03/2024 Do You Use Any Illicit Or Recreational Drugs? No MIGRATION.54451 68418 Information not available 11/15/2022 Do You Use Sunscreen Routinely? No MIGRATION.41644 57109 Information not available 11/15/2022 Has Tobacco Cessation Counseling Been Provided? No MIGRATION.19838 72663 Information not available 11/15/2022 Have You Recently Traveled Abroad? No MIGRATION.10517 71219 Information not available 11/15/2022 Are You Currently In School? No Information not available 12/03/2024 Do You Have Any Dietary Restrictions? No MIGRATION.43613 07174 Information not available 11/15/2022 Do You Or Have You Ever Used Any Other Forms Of Tobacco Or Nicotine? No MIGRATION.21098 01341 Information not available 11/15/2022 Sex: Unknown Functional Status Question Answer Note LastModified by Organizat ion Details LastModified Time What is your exercise level? Moderate [id number] Information not available 11/15/2022 Mental Status None recorded. Family History Relationship Description Onset Age of this Age Resolved Age Notes LastModified by Organization Details LastModified Time Mother Family history of malignant neoplasm [id number].[id number] Not available 11/15/2022 08:06:35 Father Family history of malignant neoplasm [id number].[id number] Not available 11/15/2022 08:06:35 Medical History Condition Response BLINDNESS N RHEUMATIC FEVER N KIDNEY STONES N BLADDER PROBLEMS N MRSA N OTHER # 1 N POLIO N LUNG DISEASE/DISORDER N RADIATION / CHEMOTHERAPY N COPD N Other # 2 N BLOOD DISEASES N SURGERY N EAR OR HEARING PROBLEMS N MUMPS N FEMALE PROBLEMS / INFECTIONS N DEPRESSION (INCLUDING POST ) Y BOWEL PROBLEMS N STROKE/TIA N THYROID DISEASE N ULCERS N [...] N CHRONIC PAIN SYNDROME N HYPOTHYROIDISM N CAROTID BLOCKAGE N CONSTIPATION N BACK / NECK PROBLEMS N HAVE YOU BEEN HOSPITALIZED OR SEEN IN [facility] IN THE PAST YEAR ? N ATHEROSCLEROSIS [...] PULMONARY EMBOLISM N AUTOIMMUNE DISEASE N Gynecological History Statement/Question Response How many live births 0 Date of Last Colonoscopy Most Recent Bone Density Date of LMP Date of Last Pap Smear Current Control Method Menopause Most Recent Mammogram Obstetrics History GPAL:G 0 P 0 0 0 0 Type Value Multiple Births 0 Full Term 0 Induced 0 Spontaneous 0 Premature 0 Living 0 Ectopics 0 Total 0 Immunizations Vaccine Type Date Status Note Provider Sam gilbert and Address Organization Details Recorded Time Influenza, high-dose, quadrivalent, PF completed Chauncey Burrows RN null, [place] [facility] [place] [employer] [facility] 07/11/2023 16:26:07 Influenza, split virus, trivalent, PF 3 completed Not Available [facility] 11/15/2022 08:11:56 SARS-COV-2 (COVID-19) vaccine, UNSPECIFIED 1 completed Not Available [facility] 11/15/2022 08:11:57 Influenza, split virus, quadrivalent, preservative 7 completed Not Available [facility] 11/15/2022 08:11:57 SARS-COV-2 (COVID-19) vaccine, UNSPECIFIED 1 completed Not Available [facility] 11/15/2022 08:11:57 Influenza, split virus, trivalent, preservative 5 completed Not Available [facility] 11/15/2022 08:11:57 Pneumococcal conjugate PCV 13 5 completed Not Available [facility] 11/15/2022 08:11:57 Tdap 2 completed Not Available [facility] 11/15/2022 08:11:57 Influenza, high-dose, quadrivalent, PF 2 completed Not Available [facility] 11/15/2022 08:11:57 Influenza, high-dose, quadrivalent, PF 1 completed Not Available [facility] 11/15/2022 08:11:58 Influenza, split virus, quadrivalent, PF 8 completed Not Available [facility] 11/15/2022 08:11:58 Influenza, split virus, quadrivalent, PF 4 completed Not Available [facility] 11/15/2022 08:11:58 Past Encounters Encounter ID Performer Location Encounter Start Date Encounter Closed Date Diagnosis/Indication Diagnosis SNOMED-CT Code Diagnosis ICD10 Code Diagnosis Note [id number] [facility] [address] [facility] [address] [place] [address] 12/09/2020 00:00:00 12/13/2020 18:50:21 [id number] [facility] [place] [address] [facility] [address] [place] [address] 03/24/2021 00:00:00 03/24/2021 10:55:57 [id number] [facility] [place] [address] [place] [address] 08/01/2021 00:00:00 08/01/2021 14:22:20 [id number] [facility] [place] [address] [place] [address] 09/08/2021 00:00:00 09/08/2021 12:06:25 [id number] [facility] [place] [address] [place] [address] 09/21/2021 00:00:00 09/21/2021 10:57:44 [id number] [facility] [place] [address] [place] [address] 04/10/2022 00:00:00 04/10/2022 16:06:31 [id number] [facility] [place] [address] [place] [address] 05/16/2022 00:00:00 05/16/2022 15:45:11 [id number] [facility] [place] [address] [place] [address] 08/16/2022 00:00:00 08/16/2022 15:08:48 [id number] [facility] [place] [address] [place] [address] 10/20/2022 00:00:00 10/20/2022 11:18:38 [id number] GARRICK Art [facility] [place] [address] [facility] [address] [place] [address] 01/05/2023 14:21:43 01/05/2023 15:09:02 Hyperlipidemia 32835329 E78.5 Not tolerating atorvastat in, will d/c for now. Labs looked normal.Saw marte recheck labs in 6 months. Anxiety 61880097 F41.9 Now followed by Ofelia Moise (psychiatr y).Continu e Sertraline 200mg daily, Risperidon e 2mg qhs and alprazolam 1mg BID PRN. Memory impairment 977079 006 R41.3 Started on donepezil 5mg daily.Psyc hiatry recommende d she see neurology to evaluate. [id number] Darlene Choi MD [facility] Primary Care [address] [place] [address] 02/21/2023 14:23:47 02/21/2023 15:30:50 Major depressive disorder 914083981 F32.9 no si/hishe is seeing psychiatry every 2 monthsrefi ll givenf/u in 4 weeks Essential hypertension 67937472 I10 will monitor closely Prediabetes 840545426 R7 3.03 Vitamin D deficiency 347 64564 E55.9 Dementia 31626857 F03.90 on donepezil 5 mg dailywill establish with neurology in Dec Dysuria 16611559 R30.0 Weight gain 3622262 R63. 5 [id number] [facility] Primary Care [address] [place] [address] 04/05/2023 15:43:40 04/05/2023 16:12:59 Anxiety 31989498 F41.9 Essential hypertension 16604332 I10 [id number] Darlene Choi MD [facility] Primary Care [address] [place] [address] 07/11/2023 14:00:18 07/11/2023 14:25:01 Sleep apnea 98827700 G47.30 snoring, gasping, witnessed apneic events, excessive daytime somnolence sleep study ordered Administra tion of influenza vaccine [id number] Z23 Headache 97523697 R51.9 ? htn vs osasleep study orderedche ck home bps 2x per week and f/u in 4 weekssampl es given of ubrelvy Essential hypertension 58818877 I10 elevated todayconti nue current medscheck home bps 2x per weekf/u in 4 weeks [id number] Darlene Choi MD [facility] Primary Care [address] [place] [address] 08/20/2023 11:55:11 08/20/2023 12:09:21 Essential hypertension 63573624 I10 improvedco ntinue home bps 2x per weekf/u in 4 weeks Cough 89076526 R05.9 supportive carecall/r eturn if no improvemen t in 1-2 days or sooner if neededrevi ewed s/s that warrant urgent/uziel rgent eval in meantime [id number] Darlene Choi MD [facility] Primary Care [facility] [address] [facility] [address] [place] [address] 09/25/2023 12:08:32 09/25/2023 12:45:16 Essential hypertension 63276633 I10 improvedco ntinue home bps 2x per weekf/u in 3 months Hyperlipidemia 99747369 E78.5 Prediabetes 554868098 R7 3.03 Memory impairment 038573 006 R41.3 G43.909 labs [address] by neuro [address] Hoskins [id number] Darlene Choi MD [facility] [address] [place] [address] [address] [place] [address] 10/23/2023 14:37:34 11/15/2023 14:46:54 [id number] [address] [facility] Primary Care [facility] [address] [place] [address] [address] [place] [address] 11/15/2023 14:27:09 11/15/2023 15:31:03 [id number] [facility] Primary Care [facility] [address] [place] [address] [address] [place] [address] 12/25/2023 13:55:36 12/25/2023 14:18:36 Essential hypertension 29652272 I10 improvedco ntinue home bps 2x per weekcheck bmp to monitor sodiumf/u in 6 months Hypokalemia 01594430 E87 .6 bmp as aboverefil l given Dementia 27264528 F03.90 stable refill given Renewal of prescription 442245602 Z76.0 Pain of le ft knee joint [id number] 45404 M25.562 uses this very sparinglyr efill givenPt understand s this medication has risk for abuse/depe ndence and agrees to take it only as prescribed and to guard from loss/theft [place] prescripti on monitoring website reviewed [id number] MARINE Hoover [facility] Primary Care [facility] [address] [facility] [address] [place] [address] 03/05/2024 14:11:02 03/05/2024 14:25:15 [id number] MARINE Hoover [facility] Primary Care [address] [place] [address] 05/13/2024 13:59:14 05/13/2024 14:24:39 Essential hypertension 34470242 I10 bp 128/76, 89 some sob more recently, uses inhalercur rently CARPIO, not bearable [id number] Vanessa Parker [facility] [address] [address] 2024 14:02:01 2024 14:29:51 [id number] MARINE Hoover [facility] Primary Care [place] [address] [place] [address] 07/02/2024 12:10:38 07/02/2024 12:46:52 Asthma 527174144 J45.909 was using symbicort in the past with no ASE, stoppedref ill symbicort, albuterolm outh breathing- encouraged use of fluticason e/antihist amine [id number] [facility] [address] [address] 08/13/2024 13:51:27 08/13/2024 15:08:30 [id number] MARINE Sims [facility] Primary Care [facility] [address] [facility] [address] [place] [address] 12/03/2024 13:57:30 12/03/2024 14:51:16 Pain of left knee joint 9050914897 33999 M25.562 Sleep apnea 64186180 G47 .30 Continue to follow pulmonolog ist as directed. Essential hypertension 29152212 I10 120/70.Con tinue with current medication s.Check labs as listed below. Hyperlipidemia 38488020 E78.5 Check labs as listed below. Vitamin D deficiency 347 29810 E55.9 Check labs as listed below. Prediabetes 723477217 R7 3.03 Check labs as listed below. Body mass index 30+ - obesity 855215794 Z68.32 Weight: 208 poundsBMI: 32.7Discus sed healthy diet and routine exercise. [id number] Vanessa Parker, HAP [facility] happin! [facility] [address] [address] 12/04/2024 14:37:28 12/04/2024 15:20:29 Health Concerns Section Related Observation LastModified by Organization Detai ls LastModified Time None Recorded Concern Status LastModified by Organization Details LastModified Time None Recorded Advance Directives Directive N: Payers Encounter Date Sequence Insurance Name Policy Number Policy Kay Covered Member ID Kay Member ID Guarantor Name 12/25/2023 1 [employer] (MEDICARE REPLACEMENT/A DVANTAGE - PPO) Jacqueline Minor Willi Karon [id number] Jacqueline S [place] 03/05/2024 1 [employer] (MEDICARE REPLACEMENT/A DVANTAGE - PPO) Jacqueline Márquez Karon [id number] Jacqueline S [place] 05/13/2024 1 [employer] (MEDICARE REPLACEMENT/A DVANTAGE - PPO) Jacqueline Minor Willi Karon [id number] Jacqueline S [place] 07/02/2024 1 [employer] (MEDICARE REPLACEMENT/A DVANTAGE - PPO) Jacqueline Minor Willi Karon [id number] Jacqueline S [place] 12/03/2024 1 [employer] (MEDICARE REPLACEMENT/A DVANTAGE - PPO) Jacqueline Minor Willi Karon [id number] Jacqueline S [place] [facility] Notes Date Note Type Note Provider Name and Address Organization Details Recorded Time 12/25/2023 text/html Here to f/u, she wonders she has a UTI (has some burning on occ with urination). She is seeing psychiatry every 2 months (major depressive disorder, dementia). She has upcoming appt with neurology in August to establish care. She was admitted to [facility] after overdose attempt that she attributes to some confusion-she had mixed her medication up and her sodium level was off. She is feeling better now, no si/hi. She is using a pill special events planner to manage her meds. Her stressors [...] ibuprofen and topicals. Darlene Choi MD [address], [place] [address], [place], [address], [employer] 12/25/2023 14:15:19 05/13/2024 text/html pt is here for f/u Manoj F XAVIER lópez-Laxmi [address], [place], [address], [employer] 05/13/2024 14:23:09 07/02/2024 text/html pt is here for f/u Manoj F ord [employer] DES[employer] [address], [place], [address], [employer] 07/02/2024 12:50:34 12/03/2024 text/html Patient is a 69 year old female that presents to the office for follow up. Patient reports she is still having issues with shortness of breath, sees lead enterprise architect every 3 months. Patient was diagnosed with obstructive severe sleep apnea, is suppose to have more extensive sleep study completed but she is waiting for her insurance to approve it. Patient's CPAP has not been approved by insurance yet. Sees Fox Guevara in [place].Patient reports wheezing, is currently using Symbicort and Proair. Patient continues to see psych every 3 months, next appt is tomorrow. Janelle Veloz, XAVIER-C [address] [facility], [facility] [address], [place], [address], [email or web address] 12/08/2024 13:41:49 OBGyn Episode No OBEpisode recorded.
--- OUTSIDE RECORDS SUMMARY | 2024-12-19 13:41 | XMS_ITS | Clinical Summary ---
Author Organization [facility] Address [facility] [place] [address] Care Team Providers Care Brass Chaser Name Role Phone Unavailable Primary Care Provider [...]
== END 2024-12-19 13:38 | disposition home or self-care (01) ==
PROVIDERS: PCP Student in an Organized Health Care Education/Training Program; Visit Provider Nurse Practitioner Family
DX: R91.8 Other nonspecific abnormal finding of lung field (principal); R06.02 Shortness of breath; R06.2 Wheezing
CPT/HCPCS: 71250

== ENCOUNTER 2024-12-22 08:24 | Outpatient (CLI) | payer MEDICARE, SELFPAY ==
--- OUTSIDE RECORDS SUMMARY | 2024-12-22 08:42 | XMS_ITS | Clinical Summary ---
Author Organization [facility] Address [facility] [place] [address] Care Team Providers Care Queen Producer Name Role Phone Unavailable Primary Care Provider [...] 2021 COVID-19 Vaccine (2023-2 5 season) 2024 RSV Immunization or 60+ Years (1 [...]
--- OUTSIDE RECORDS SUMMARY | 2024-12-22 08:43 | XMS_ITS | Data Portability ---
Author Organization [facility], Main Office Address [address] [place] [address] Assessment No assessment recorded. Plan of Treatment Reminders Order Date Submit Date Provider Last Modified By Organization Details Last Modified Time Details Appointments Follow Up 15 2024 01:00P JING Rios Not available Not available Not available Lab vitamin D, 25-hydrox y, total, serum 2024 025 [facility] Orders, [address] [place], [address], 12/18/2024 11:19:23 HbA1c (hemoglob in A1c), blood 2024 025 [facility], [address] [place], [address], 12/18/2024 11:19:23 CBC w/ auto diff 2024 025 [facility] Orders, [address] [place], [address], 12/18/2024 11:19:22 lipid panel, serum 2024 025 [facility] Orders, [address] [place], [address], 12/18/2024 11:19:22 hepatic function panel, serum 2024 025 [facility] Orders, [address] [place], [address], 12/18/2024 11:19:22 CMP, serum or plasma 2024 025 [facility] Add On Lab Orders, [address], [place], [address], 12/18/2024 11:19:22 BMP, serum or plasma 2023 024 JUAN CARLOS Not available 12/25/2023 20:11:26 Referral None recorded. Procedures None recorded. Surgeries None recorded. Imaging None recorded. Medication Orders acetamino phen 300 mg-codein e 30 mg tablet 2024 025 [facility] [address], [address], [place], [address], 12/03/2024 14:38:00 albuterol sulfate HFA 90 mcg/actua tion aerosol inhaler 2023 024 [facility] [address], [address] , [place], [address], 07/02/2024 12:46:12 Symbicort 80 mcg-4.5 mcg/actua tion HFA aerosol inhaler 2023 024 [facility] [address], [address], [place], [address], 12/03/2024 14:07:37 acetamino phen 300 mg-codein e 30 mg tablet 2023 024 [facility] [address], [address] , [place], [address], 12/03/2024 14:05:29 donepezil 5 mg tablet 2023 024 [facility] [address], [address] , [place], [address], 12/25/2023 14:11:10 losartan 100 mg tablet 2023 024 [facility] [address], [address] , [place], [address], 12/25/2023 14:11:05 hydrochlo rothiazid e 25 mg tablet 2023 024 [facility] [address], [address] , [place], [address], 12/25/2023 14:11:06 bupropion HCl XL 150 mg 24 hr tablet, extended release 2023 024 [facility] [address], [address] , [place], [address], 12/25/2023 14:11:08 aripipraz ole 2 mg tablet 2023 024 [facility] [address]25, [address] [facility], [place], [address], 12/25/2023 14:11:06 sertralin e 100 mg tablet 2023 024 [facility], [address] [facility], [place], [address], 12/03/2024 14:07:31 potassium chloride ER 20 mEq tablet,ex tended release 2023 024 [facility] 2425, [address] [facility], [place], [address], 12/25/2023 14:11:05 Patient TargetsNo targets recorded. Patient InstructionsNo instructions recorded. Reason for Referral None Reported. Results Created Date Observation Date Name Description Value Unit Range Abnormal Flag Note LastModifiedBy Organization Detail LastModifiedTime 12/25/19 24 12/25/2023 BASIC METAB OLIC PANEL sodium 131 mmol/ L 137-14 5 low Not Available [facility] (Lab) [address] [place], [address], 12/25/2023 20:11:26 12/25/19 24 12/25/2023 BASIC METAB OLIC PANEL potassium 4.1 mmol/ L 3.5-5. 1 Not Available [facility] (Lab) [address] [place], [address], 12/25/2023 20:11:26 12/25/19 24 12/25/2023 BASIC METAB OLIC PANEL chloride 98 mmol/ L 98-107 Not Available [facility] (Lab) [address] [place], [address], 12/25/2023 20:11:26 12/25/19 24 12/25/2023 BASIC METAB OLIC PANEL carbon dioxide 26 mmol/ L 22-30 Not Available [facility] (Lab) [address] [place], [address], 12/25/2023 20:11:26 12/25/19 24 12/25/2023 BASIC METAB OLIC PANEL anion gap 11.1 mmol/ L 14-22 low Not Available [facility] (Lab) [address] [place], [address], 12/25/2023 20:11:26 12/25/19 24 12/25/2023 BASIC METAB OLIC PANEL glucose 93 mg/dL 70-99 Not Available [facility] (Lab) [address] [place], [address], 12/25/2023 20:11:26 12/25/19 24 12/25/2023 BASIC METAB OLIC PANEL BUN 12 mg/dL 8-19 Not Available [facility] (Lab) [address] [place], [address], 12/25/2023 20:11:26 12/25/19 24 12/25/2023 BASIC METAB OLIC PANEL creatinine 0.78 mg/dL 0.66-1 .25 Not Available [facility] (Lab) [address] [place], [address], 12/25/2023 20:11:26 12/25/19 24 12/25/2023 BASIC METAB OLIC PANEL GFR >60 Refer ence Range : Crowley ge GFR Healt hy Adult : >60 [...] calcu lator is avail able on the [facility] websi te: [email or web address] :[email or web address]/pr [email or web address] ional s/kdo [email or web address]/gf r_cal culat or Not Available [facility] (Lab) [address] [place], [address], 12/25/2023 20:11:26 12/25/19 24 12/25/2023 BASIC METAB OLIC PANEL calcium 9.5 mg/dL 8.4-10 .2 Not Available [facility] (Lab) [address] [place], [address], 12/25/2023 20:11:26 Result Notes None recorded. Problems Name Problem SNOMED Code Status Onset Date Resolution Date Notes Provider Name and Address Organization Details Recorded Time Chronic back pain 295388241 Active Not Available [facility] 3 08:09:09 History of transient ischemic attack 768613595 Active Not Available [facility] 3 08:09:09 Blood glucose outside reference range 930269029 Completed Not Available [facility] 3 08:09:09 Insomnia 947320816 Completed Not Available [facility] 3 08:09:09 Asthma 833740564 Active Not Available [facility] 3 08:09:09 Anxiety disorder 471982539 Active Not Available [facility] 3 08:09:09 Low back pain 339976655 Completed Not Available [facility] 3 08:09:09 Exercise- induced asthma 51491644 Completed Not Available [facility] 3 08:09:09 Vitamin D deficienc y 80489153 Active Not Available [facility] 3 08:09:09 Osteoarth ritis 488752429 Active Not Available [facility] 3 08:09:09 Anxiety 89471774 Completed Rishi Pearce MD [address], [place], [address] , [facility] 3 14:47:23 Upper respirato ry infection 06033418 Completed Not Available [facility] 3 08:09:09 Hyperlipi demia 17365897 Active Not Available [facility] 3 08:09:09 Essential hypertens ion 09698233 Active Not Available [facility] 3 08:09:09 Prediabet es 700830077 Active Not Available [facility] 3 08:09:09 Hyperglyc emia 75677663 Completed Not Available [facility] 3 08:09:10 Major depressiv e disorder 957764993 Active 2022 Darlene Choi MD [address], [address], [place], [address] , [facility] [employer] 3 15:02:39 Dementia 17958799 Active 2022 Darlene Choi MD [address], [address], [place], [address] , [facility] [employer] [facility] 3 15:06:01 Sleep apnea 92240660 Active 2022 Darlene Choi MD [address], [address], [place], [address] , [facility] 3 14:14:10 Cough 42510702 Active 2022 Darlene Choi MD [address] [address], [address], [place], [address] , [facility] 3 12:05:36 Memory impairmen t 955356326 Active 2023 Darlene Choi MD [address], [address], [place], [address] , [facility] 4 12:22:43 Thrombocy tosis 6783550 Active 2023 Darlene Choi MD [address], [address], [place], [address] , [facility] 4 18:07:29 Hyponatre kendrick 88488374 Active 2023 Darlene Choi MD [address], [address] [address], [place], [address] , [facility] 4 18:07:37 Hypokalem ia 95394581 Active 2023 Darlene Choi MD [address], [address] [address], [place], [address] , [facility] 4 18:07:43 Pain of left knee joint 93542403684 4107 Active 2023 Darlene Choi MD [address] [address], [address] [address], [place], [address] , [facility] 4 14:11:34 Notes:Darlene Choi MD [phone] [facility] home sleep study 08/01/23 AHI = 68, [...] n other Not available Not available 11/15/2022 09022 1 RxNorm SWELL ING HANDS AND THROA T Not Available [facility] 3 08:12:14 38853 Effexor medicatio n headache mild Not available 11/15/2022 21383 2 RxNorm unsur e if aller gy Not Available [facility] 3 08:12:14 Product containin g angiotens in-conver ting enzyme inhibitor (product) medicatio n cough Not available Not available 11/15/2022 46440 009 SNOMED Not Available [facility] 3 08:12:14 Medications Name Sig Start Date [...] t Available prednisone 20 mg tablet TAKE 1 TABLET BY MOUTH TWICE DAILY FOR 5 DAYS active Not Available [...] Available Not Available No t Available Fluvirin 5920-8601 (PF) 45 mcg (15 mcg x 3)/0.5 mL IM syringe active Not Available Not Available N ot Available Fluarix Quad 7810-8575 (PF) 60 mcg (15 mcg x 4)/0.5 [...] Updated DateTime 4 170.18 cm 32.7 kg/m2 13072.8 1 g 97.3 [degF] 90 /min 96 % 96 % 126 mm[Hg] 82 mm[Hg] Chauncey Burrows RN [facility] [employer] [facility] 4 14:00:19 Date Recorded Body height Body mass index (BMI) Body weight Body temperature Heart rate Oxygen saturation Oxygen saturation in Arterial blood by Pulse oximetry Systolic blood pressure Diastolic blood pressure Provider Name and Address Organization Details Last Updated DateTime 4 170.18 cm 32.9 kg/m2 90810.4 g 96.4 [degF] 89 /min 91 % 91 % 128 mm[Hg] 76 mm[Hg] Ofelia Santillan RN [facility] [employer] [facility] 4 14:06:00 Date Recorded Body height Body mass index (BMI) Body weight Body temperature Heart rate Oxygen saturation Oxygen saturation in Arterial blood by Pulse oximetry Systolic blood pressure Diastolic blood pressure Provider Name and Address Organization Details Last Updated DateTime 4 170.18 cm 33.4 kg/m2 68712.1 7 g 98.4 [degF] 82 /min 96 % 96 % 160 mm[Hg] 96 mm[Hg] Ofelia Santillan RN [facility] [employer] [facility] 4 12:30:07 Date Recorded Body height Body mass index (BMI) Body weight Body temperature Heart rate Oxygen saturation Oxygen saturation in Arterial blood by Pulse oximetry Pain severity - 0-10 verbal numeric rating [Score] - Reported Systolic blood pressure Diastolic blood pressure Provider Name and Address Organization Details Last Updated DateTime 5 170.18 cm 32.7 kg/m2 10676.0 1 g 98.4 [degF] 90 /min 96 % 96 % 0 120 mm[Hg] 70 mm[Hg] Nica Haley MA [facility] [employer] [facility] 5 14:05:10 Social History Question Answer Notes LastModified by Organizat ion Details LastModified Time Tobacco Smoking Status Never Smoker Not Available [employer] 11/15/2022 08:06:03 Do You Have An Advance Directive? No [id number] Information not available 11/15/2022 What Is Your Level Of Alcohol Consumption? None MIGRATION.57712 09113 Information not available 11/15/2022 What Is Your Level Of Caffeine Consumption? Heavy MIGRATION.54894 55932 Information not available 11/15/2022 How Much Tobacco Do You Chew? None MIGRATION.82873 96680 Information not available 11/15/2022 In The 14 Days Before Symptom Onset, Have You Had Close Contact With A Laboratory-confi rmed COVID-19 While That Case Was Ill? No MIGRATION.80766 84604 Information not available 11/15/2022 In The 14 Days Before Symptom Onset, Have You Had Close Contact With A Person Who Is Under Investigation For COVID-19 While That Person Was Ill? No MIGRATION.39794 66535 Information not available 11/15/2022 Are You Currently Employed? No Information not available 12/03/2024 What Type Of Diet Are You Following? REGULAR MIGRATION.66154 41047 Information not available 11/15/2022 Which Illicit Or Recreational Drugs Have You Used? NO MIGRATION.17821 75632 Information not available 11/15/2022 Do You Or Have You Ever Used E-cigarettes Or Vape? Never Used Electronic Cigarettes MIGRATION.57052 22467 Information not available 11/15/2022 What Is Your Occupation? RETIRED MIGRATION.88062 39980 Information not available 11/15/2022 Have There Been [...] Used Smokeless Tobacco? Never Used Smokeless Tobacco MIGRATION.00303 46040 Information not available 11/15/2022 Are There Any Smokers In Your House? No Information not available 12/03/2024 Do You Participate In Social Media? No Information not available 12/03/2024 Do You Feel Stressed (tense, Restless, Nervous, Or Anxious, Or Unable To Sleep At Night)? EQ44383-1 Information not available 12/03/2024 Do You Use Any Illicit Or Recreational Drugs? No MIGRATION.13354 00343 Information not available 11/15/2022 Do You Use Sunscreen Routinely? No MIGRATION.16210 89785 Information not available 11/15/2022 Has Tobacco Cessation Counseling Been Provided? No MIGRATION.87820 49687 Information not available 11/15/2022 Have You Recently Traveled Abroad? No MIGRATION.63652 69399 Information not available 11/15/2022 Are You Currently In School? No Information not available 12/03/2024 Do You Have Any Dietary Restrictions? No MIGRATION.11165 25126 Information not available 11/15/2022 Do You Or Have You Ever Used Any Other Forms Of Tobacco Or Nicotine? No MIGRATION.24421 16357 Information not available 11/15/2022 Sex: Unknown Functional Status Question Answer Note LastModified by Organizat ion Details LastModified Time What is your exercise level? Moderate [id number].[id number] Information not available 11/15/2022 Mental Status None recorded. Family History Relationship Description Onset Age of this Age Resolved Age Notes LastModified by Organization Details LastModified Time Mother Family history of malignant neoplasm MIGRATION.378 [id number] Not available 11/15/2022 08:06:35 Father Family history of malignant neoplasm MIGRATION.821 [id number] Not available 11/15/2022 08:06:35 Medical History Condition [...] INSOMNIA N HIGH CHOLESTEROL / HYPERLIPIDEMIA N HYPERTHYROIDISM N EYE PROBLEMS N EATING DISORDER N NEUROLOGICAL PROBLEMS N EDEMA N CHRONIC PAIN SYNDROME N HYPOTHYROIDISM N CONSTIPATION N CAROTID BLOCKAGE N BACK / NECK PROBLEMS N HAVE YOU BEEN HOSPITALIZED OR SEEN IN [facility] IN THE PAST YEAR ? N [...] DISORDER N ALZHEIMER'S DISEASE N PAIN N HERPES N DEMENTIA N SEIZURES/EPILEPSY N HEADACHES/MIGRAINES N VASCULAR DISEASE N PACEMAKER N DIZZINESS N KIDNEY DISEASE N HEART DISEASE/HEART PROBLEMS N SCARLET FEVER N MULTIPLE SCLEROSIS N MENTAL DISORDER/ILLNESS N DEVELOPMENTAL OR BEHAVIORAL DISORDERS N CARDIAC ARRHYTHMIA N CANCER: SPECIFY N PNEUMONIA N Gall Stones N ATRIAL FIBRILLATION N PULMONARY EMBOLISM N AUTOIMMUNE DISEASE N [...] Chauncey Burrows RN null, [place] [employer] [facility] 07/11/2023 16:26:07 Influenza, split virus, trivalent, PF 3 completed Not Available [facility] 11/15/2022 08:11:56 SARS-COV-2 (COVID-19) vaccine, UNSPECIFIED 1 completed Not Available [facility] 11/15/2022 08:11:57 Influenza, split virus, quadrivalent, preservative 7 completed Not Available [facility] 11/15/2022 08:11:57 SARS-COV-2 (COVID-19) vaccine, UNSPECIFIED 1 completed Not Available [facility] 11/15/2022 08:11:57 Influenza, split virus, trivalent, preservative 5 completed Not Available [facility] 11/15/2022 08:11:57 Pneumococcal conjugate PCV 13 5 completed Not Available [facility] 11/15/2022 08:11:57 Tdap 2 completed Not Available [facility] 11/15/2022 08:11:57 Influenza, high-dose, quadrivalent, PF 2 completed Not Available [facility] 11/15/2022 08:11:57 Influenza, high-dose, quadrivalent, PF 1 completed Not Available [facility] 11/15/2022 08:11:58 Influenza, split virus, quadrivalent, PF 8 completed Not Available [facility] 11/15/2022 08:11:58 Influenza, split virus, quadrivalent, PF 4 completed Not Available [facility] 11/15/2022 08:11:58 Past Encounters Encounter ID Performer Location Encounter Start Date Encounter Closed Date Diagnosis/Indication Diagnosis SNOMED-CT Code Diagnosis ICD10 Code Diagnosis Note [id number] [facility] [address] [facility] [address] [place] [address] 12/09/2020 00:00:00 12/13/2020 18:50:21 [id number] [facility] [place] [address] [facility] [address] [place] [address] 03/24/2021 00:00:00 03/24/2021 10:55:57 [id number] [facility] [place] [address] [place] [address] 08/01/2021 00:00:00 08/01/2021 14:22:20 [id number] [facility] [place] [address] [place] [address] 09/08/2021 00:00:00 09/08/2021 12:06:25 [id number] [facility] [place] [address] [place] [address] 09/21/2021 00:00:00 09/21/2021 10:57:44 [id number] [facility] [place] [address] [place] [address] 04/10/2022 00:00:00 04/10/2022 16:06:31 [id number] [facility] [place] [address] [place] [address] 05/16/2022 00:00:00 05/16/2022 15:45:11 [id number] [facility] [place] [address] [place] [address] 08/16/2022 00:00:00 08/16/2022 15:08:48 [id number] [facility] [place] [address] [place] [address] 10/20/2022 00:00:00 10/20/2022 11:18:38 [id number] GARRICK Art [facility] [place] [address] [facility] [address] [place] [address] 01/05/2023 14:21:43 01/05/2023 15:09:02 Hyperlipidemia 15115239 E78.5 Not tolerating atorvastat in, will d/c for now. Labs looked normal.Saw marte recheck labs in 6 months. Anxiety 31225154 F41.9 Now followed by Ofelia Moise (psychiatr y).Continu e Sertraline 200mg daily, Risperidon e 2mg qhs and alprazolam 1mg BID PRN. Memory impairment 021429 006 R41.3 Started on donepezil 5mg daily.Psyc hiatry recommende d she see neurology to evaluate. [id number] Darlene Choi MD [facility] Primary Care [address] [place] [address] 02/21/2023 14:23:47 02/21/2023 15:30:50 Major depressive disorder 773504716 F32.9 no si/hishe is seeing psychiatry every 2 monthsrefi ll givenf/u in 4 weeks Essential hypertension 46156119 I10 will monitor closely Prediabetes 693081297 R7 3.03 Vitamin D deficiency 347 61596 E55.9 Dementia 40669025 F03.90 on donepezil 5 mg dailywill establish with neurology in Dec Dysuria 00853992 R30.0 Weight gain 2157691 R63. 5 [id number] Darlene Choi MD [facility] Primary Care [address] [place] [address] 04/05/2023 15:43:40 04/05/2023 16:12:59 Anxiety 64869514 F41.9 Essential hypertension 01071154 I10 [id number] Darlene Choi MD [facility] Primary Care [address] [place] [address] 07/11/2023 14:00:18 07/11/2023 14:25:01 Sleep apnea 28625051 G47.30 snoring, gasping, witnessed apneic events, excessive daytime somnolence sleep study ordered Administra tion of influenza vaccine 65113514 Z23 Headache 07769481 R51.9 ? htn vs osasleep study orderedche ck home bps 2x per week and f/u in 4 weekssampl es given of ubrelvy Essential hypertension 97093289 I10 elevated todayconti nue current medscheck home bps 2x per weekf/u in 4 weeks [id number] Darlene Choi MD [facility] Primary Care [address] [place] [address] 08/20/2023 11:55:11 08/20/2023 12:09:21 Essential hypertension 35202959 I10 improvedco ntinue home bps 2x per weekf/u in 4 weeks Cough 80555517 R05.9 supportive carecall/r eturn if no improvemen t in 1-2 days or sooner if neededrevi ewed s/s that warrant urgent/uziel rgent eval in meantime [id number] Darlene Choi MD [facility] Primary Care [facility] [address] [facility] [address] [place] [address] 09/25/2023 12:08:32 09/25/2023 12:45:16 Essential hypertension 55548446 I10 improvedco ntinue home bps 2x per weekf/u in 3 months Hyperlipidemia 19567803 E78.5 Prediabetes 399861404 R7 3.03 Memory impairment 529150 006 R41.3 G43.[address] Hoskins [id number] Darlene Choi MD [facility] Primary Care [facility] [address] [place] [address] [address] [place] [address] 10/23/2023 14:37:34 11/15/2023 14:46:54 [id number] Darlene Choi MD [facility] Primary Care [facility] [place] [address] [address] [place] [address] 11/15/2023 14:27:09 11/15/2023 15:31:03 [id number] Darlene Choi MD [facility] Primary Care [facility] [address] [place] [address] [address] [place] [address] 12/25/2023 13:55:36 12/25/2023 14:18:36 Essential hypertension 35210103 I10 improvedco ntinue home bps 2x per weekcheck bmp to monitor sodiumf/u in 6 months Hypokalemia 10804647 E87 .6 bmp as aboverefil l given Dementia 25178919 F03.90 stable refill given Renewal of prescription 432942765 Z76.0 Pain of le ft knee joint 1023044271 20659 M25.562 uses this very sparinglyr efill givenPt understand s this medication has risk for abuse/depe ndence and agrees to take it only as prescribed and to guard from loss/theft [place] prescripti on monitoring website reviewed [id number] MARINE Hoover S[facility] Primary Care [facility] [address] [facility] [address] [place] [address] 03/05/2024 14:11:02 03/05/2024 14:25:15 [id number] MARINE Hoover [facility] Primary Care [address] [place] [address] 05/13/2024 13:59:14 05/13/2024 14:24:39 Essential hypertension 38172127 I10 bp 128/76, 89 some sob more recently, uses inhalercur rently CARPIO, not bearable [id number] Vanessa Parker [facility] [address] [address] 2024 14:02:01 2024 14:29:51 [id number] MARINE Hoover [facility] Primary Care [place] [address] [place] [address] 07/02/2024 12:10:38 07/02/2024 12:46:52 Asthma 131844464 J45.909 was using symbicort in the past with no ASE, stoppedref ill symbicort, albuterolm outh breathing- encouraged use of fluticason e/antihist amine [id number] [facility] [address] [address] 08/13/2024 13:51:27 08/13/2024 15:08:30 [id number] MARINE Sims [facility] Primary Care [facility] [address] [facility] [address] [place] [address] 12/03/2024 13:57:30 12/03/2024 14:51:16 Pain of left knee joint 1095622932 08513 M25.562 Sleep apnea 59338994 G47 .30 Continue to follow pulmonolog ist as directed. Essential hypertension 93224263 I10 120/70.Con tinue with current medication s.Check labs as listed below. Hyperlipidemia 60199044 E78.5 Check labs as listed below. Vitamin D deficiency 347 57092 E55.9 Check labs as listed below. Prediabetes 435978534 R7 3.03 Check labs as listed below. Body mass index 30+ - obesity 930917881 Z68.32 Weight: 208 poundsBMI: 32.7Discus sed healthy diet and routine exercise. [id number] Vanessa Parker, HAP [facility] [address] [address] 12/04/2024 14:37:28 12/04/2024 15:20:29 Health Concerns Section Related Observation LastModified by Organization Detai ls LastModified Time None Recorded Concern Status LastModified by Organization Details LastModified Time None Recorded Advance Directives Directive N: Payers Encounter Date Sequence Insurance Name Policy Number Policy Kay Covered Member ID Kay Member ID Guarantor Name 12/25/2023 1 [employer] (MEDICARE REPLACEMENT/A DVANTAGE - PPO) Jacqueline Minor Willi Karon [id number] Jacqueline S Garrison-Burc ham 03/05/2024 1 [employer] (MEDICARE REPLACEMENT/A DVANTAGE - PPO) Jacqueline Márquez Karon [id number] Jacqueline S Willi-Burc ham 05/13/2024 1 [employer] (MEDICARE REPLACEMENT/A DVANTAGE - PPO) Jacqueline Minor Willi Karon [id number] Jacqueline S Willi-Burc ham 07/02/2024 1 [employer] (MEDICARE REPLACEMENT/A DVANTAGE - PPO) Jacqueline Minor Willi Karon [id number] Jacqueline S Willi-Burc ham 12/03/2024 1 [employer] (MEDICARE REPLACEMENT/A DVANTAGE - PPO) Jacqueline Minor Willi Karon [id number] Jacqueline S Garrison-Burc [facility] Notes Date Note Type Note Provider Name and Address Organization Details Recorded Time 12/25/2023 text/html Here to f/u, she wonders she has a UTI (has some burning on occ with urination). She is seeing psychiatry every 2 months (major depressive disorder, dementia). She has upcoming appt with neurology in August to establish care. She was admitted to [facility] after overdose attempt that she attributes to some confusion-she had mixed her medication up and her sodium level was off. She is feeling better now, no si/hi. She is using a pill load planner to manage her meds. Her stressors [...] ibuprofen and topicals. Darlene Choi MD [address], [place] [address] [address], [place], [address], [employer] 12/25/2023 14:15:19 05/13/2024 text/html pt is here for f/u Manoj F XAVIER lópez-Laxmi [address], [address], [place], [address], [employer] 05/13/2024 14:23:09 07/02/2024 text/html pt is here for f/u Manoj F ord CEPHALOMETRIC TECHNICIAN-C [address], [address], [place], [address], [employer] 07/02/2024 12:50:34 12/03/2024 text/html Patient is a 69 year old female that presents to the office for follow up. Patient reports she is still having issues with shortness of breath, sees healthcare social worker every 3 months. Patient was diagnosed with obstructive severe sleep apnea, is suppose to have more extensive sleep study completed but she is waiting for her insurance to approve it. Patient's CPAP has not been approved by insurance yet. Sees Fox Guevara in [place].Patient reports wheezing, is currently using Symbicort and Proair. Patient continues to see psych every 3 months, next appt is tomorrow. Janelle Veloz, XAVIER-C [address] [facility], [facility] [address], [place], [address], [facility] [place] 12/08/2024 13:41:49 OBGyn Episode No OBEpisode recorded.
--- NOTE | 2025-01-02 18:41 | P.SLEEP_ITS ---
Sleep Study Date of Study: 12/22/24 Ordering Provider: Fox Guevara APRN Interpreting Physician: Darlene Green MD Sleep Study Type: BiPAP Titration Height: 1.7 m Weight: 117.934 kg Body Mass Index: 40.7 Neck Circumference (inches): 19 [place]: 3 Reason for Sleep Study Known severe obstructive sleep apnea on home sleep test through [facility], patient refused treatment at the time. * 10/08/2024; split night study, severe obstructive sleep apnea, AHI 88, lowest s aturation 68%, profound hypoxemia, 100.5 minutes, 60.5% of the baseline spent below 88%. Persistent hypoxemia; 168.2 minutes, 57% of the titration with a saturation below 88%. No optimal pressure was identified; attempted CPAP 5-17, BiPAP 19/15 -24/20 with sustained hypoxemia, minimum saturations in the 67% to 76% range. Entire study was supine. No backup rate was indicated. Supplemental oxygen was not used per protocol. Mixed apneas occurred at the final BiPAP pressure 24/20. Sleep was fragmented all night. There was a solid episode of REM while the patient was using CPAP 17 and BiPAP 19/15. Sleep History Jacqueline Brantley is 69 years old, had a home sleep test at [facility] a year ago, had severe apnea however she did not want to pursue treatment at the time. She had a split night study on October 08, 2024, had devastating least severe obstructive sleep apnea with hypoxemia, no optimal pressure identified. She returns for a full night titration. She did not have central apneas on the study. The patient did not fill out a sleep survey so the specifics regarding her sleep complaints are not obtainable. [facility] Past Medical History Medical History Chronic back pain Asthma Major depressive disorder Pre-diabetes Obstructive sleep apnea Occipital neuralgia of right side Hyperlipidemia Hypertension TIA (transient ischemic attack) Anxiety Surgical History Surgical History No pertinent past surgical history Family History Family History Sibling Obstructive sleep apnea Social History Social History Smoking status: Never smoker Second hand tobacco smoke exposure: No Alcohol intake: never Drinks per week: 0 Substance use: never Do You Feel Safe in your Home?: Yes Lack of Transportation: No Lack of Food: Never True Current Housing: I Have Housing Concerned About Future Housing: No Difficulty Paying Gas/Electric Bills: No Difficulty Paying for Meds: No Currently Unemployed: No Education: High School Diploma/GED Difficulty w/ Childcare or Family Care: No Medications Home Medications ?Medication ?Instructions ?Recorded ?Confirmed ?Type alprazolam 1 mg tablet 1 mg PO DAILY 08/30/23 11/27/24 History aripiprazole 2 mg tablet (Abilify) 2 mg PO DAILY 08/30/23 11/27/24 History bupropion HCl 150 mg 24 hr tablet, 150 mg PO QAM 08/30/23 11/27/24 History extended release hydrochlorothiazide 25 mg tablet 25 mg PO DAILY 08/30/23 11/27/24 History losartan 100 mg tablet 100 mg PO DAILY 08/30/23 11/27/24 History potassium chloride 10 mEq 10 meq PO DAILY 04/02/24 11/27/24 History capsule,extended release donepezil 10 mg tablet 10 mg PO QHS #90 tabs 08/05/24 11/27/24 Rx topiramate 100 mg tablet 100 mg PO DAILY #90 tabs 08/05/24 11/27/24 Rx albuterol sulfate 90 mcg/actuation 1 - 2 inh inhalation Q4-6H PRN 09/19/24 11/27/24 Rx aerosol inhaler shortness of breath or wheezing #8.5 grams sertraline 100 mg tablet 25 mg PO DAILY 11/27/24 11/27/24 History budesonide-formoterol HFA 160 See Rx Instructions .Route 12/24/24 Rx mcg-4.5 mcg/actuation aerosol .COMPLEX #11 grams inhaler prednisone 10 mg tablet 10 mg PO DIRECTED #30 tabs 12/25/24 Rx Sleep Procedure A full night polysomnogram using the OVGuide multi-channel system recorded the standard physiologic parameters including EEG, EOG, submentalis EMG, anterior tibialis EMG, EKG, body position, nasal and oral airflow using PAP device flow signal. Respiratory parameters of chest and abdominal movements were recorded with Respiratory Inductance Plethysmography belts. Oxygen saturation was recorded by pulse oximetry. Video monitoring was also performed. Sleep stages, periodic limb movements, and EEG arousals were scored in 30 second epochs according to the criteria of the AASM Scoring Manual. The Apnea-Hypopnea Index was calculated using CMS guidelines for definition of hypopnea with 4% O2 desaturations while scoring respiratory events. She used a small ResMed N30 nasal mask but switched masks to a medium ResMed F20 FFM. She liked the full face mask more. The titration began at CPAP 9 and was increased to CPAP 11. When she was sleeping in the right lateral position on CPAP 11 cm, she spent 173 minutes in bed. She spent 29.5 minutes awake, 63.5 minutes in non-REM and 80 minutes in REM. Sleep efficiency was 82.9%. The residual apnea hypopnea index was 7.1. The mean saturation was 92.7%. This was the best pressure of the night, mainly because the lateral position decreased the intensity of events. She had a huge prolonged REM episode. During her first REM period, patient had a Charley horse and had to get up and move around. After CPAP 11 the titration continued, CPAP 13, 15, 17, then bilevel 17/13, continued up until bilevel 19/15 with a backup rate of 12, several additional attempts at different bilevel pressures up to a maximum of 27/19. When she turned into the supine position and had pressure increased during the titration from CPAP 13 up to CPAP 17 and switched into bilevel pressures, she had episodes of Giuliano-Irwin respiration. During the night, she had multiple bathroom breaks, with NREM and REM achieved in lateral and supine positions. Sleep Architecture The total recording time was 522.1 minutes. The total sleep time was 385.5 minutes. Sleep latency was 35.4 minutes. REM latency was 64.0 minutes. Sleep efficiency was 73.8%. The patient had 120 awakenings for an awakening index of 18.7. Wake after Sleep Onset time was 101.0 minutes. The patient spent 127.0 minutes, 32.9% of total sleep time in Stage N1. The patient spent 168.5 minutes, 43.7% in Stage N2. The patient spent no time in Stage N3. The patient spent 90.0 minutes, 23.3% in Stage REM. Respiratory Analysis The patient had 163 hypopneas, 102 obstructive apneas, 3 mixed apneas, and 3 central apneas for an overall Apnea Hypopnea Index of 39.8 events per hour. The REM Apnea Hypopnea Index was 7.3. The NREM Apnea Hypopnea Index was 49.7. The patient had a Central Apnea Hypopnea Index of 0.5. There were no Respiratory Effort Related Arousals. The Respiratory Disturbance Index is 40.2 events per hour. There was intermittent mild Giuliano-Irwin Respirations at higher pressures without the presence of central apneas. Arousals There were 213 total arousals for an arousal index of 33.2. There were 88 spontaneous arousals for an index of 13.7. There were 125 arousals due to respiratory events for an index of 19.5. There were no arousals due to periodic limb movements or due to isolated limb movements. Periodic Limb Movements The patient had 38 isolated limb movements with an index of 5.9. The patient had 95 periodic limb movements with index of 14.8. Patient had a total of 133 limb movements with a total limb movement index of 20.7. Oximetry Data The patient had an average oxygen saturation of 90.6% in sleep with a minimum oxygen saturation of 71.0% and a maximum oxygen saturation of 98.0%. The patient had 294 oxygen desaturations that were 4% or greater resulting in an Oxygen Desaturation Index of 45.8. The patient spent 135.7 minutes, 26.3% of total sleep time with an oxygen saturation below 88%. Snoring Profile Snoring was mild to moderate, intermittent, improved during the titration. Cardiac Profile The EKG showed normal sinus rhythm. The patient had an average pulse rate of 69.3 bpm with a minimum pulse rate of 56 bpm and a maximum pulse rate of 89 bpm. No arrhythmias noted. EEG Profile EEG was unremarkable, no evidence of seizures. Assessment and Plan Assessment and Plan (1) Obstructive sleep apnea: Code(s): G47.33 - Obstructive sleep apnea (adult) (pediatric) Status: Acute Assessment and Plan: This full night CPAP BPAP titration on 12/22/2024 shows a difficult titration with an acceptable pressure of CPAP 11 cm while sleeping in the right lateral position using a medium ResMed AirFit F20 full face mask and heated humidity. At CPAP 11 cm, she spent 173 minutes in bed. She spent 29.5 minutes awake, 63.5 minutes in non-REM and 80 minutes in REM. Sleep efficiency was 82.9%. The residual apnea hypopnea index was 7.1. The mean saturation was 92.7%. This was the best pressure of the night, mainly because the lateral position decreased the intensity of events. She should be encouraged to sleep on her right side, using pillows on her stomach and back to keep her from rolling over. The patient should be prescribed this ResMed equipment as well as tubing, filters and reservoir. This should be used with all episodes of sleep. Compliance should be reviewed within 31-90 days of starting therapy for usage greater than 4 hours per night greater than 70% of the nights. The patient should be asked about symptoms such as excessive daytime sleepiness, quality of sleep, decreased nocturia, increased mental functioning such as memory, mood, and concentration. This patient should have an overnight oximetry on room air using her CPAP 11 cm sleeping on her right side to assure that she is oxygenating sufficiently at night. BMI is 40. Weight management is advised. Clinical data suggests that weight loss of 10% can reduce the severity of respiratory events and snoring and improve AHI by as much as 25%. Data The data obtained during this sleep study is adequate for interpretation. Certification This sleep study has been reviewed by a board certified sleep medicine physician.
[2025-01-02 18:55] VITALS: BMI 40.7
== END 2024-12-23 06:15 | disposition home or self-care (01) ==
LOC: ANHCSM 08:25
PROVIDERS: PCP Student in an Organized Health Care Education/Training Program; Visit Provider Nurse Practitioner Family
DX: G47.33 Obstructive sleep apnea (adult) (pediatric) (principal)
CPT/HCPCS: 95811

== ENCOUNTER 2025-04-21 09:20 | Outpatient (CLI) | payer MEDICARE, SELFPAY ==
--- NOTE | ~2025-04-21 | NM_ITS ---
EXAMINATION: NM yanna stress w perfusion DATE: 04/21/2025 11:19 INDICATION: Other forms of dyspnea TECHNIQUE: Rest images were obtained following intravenous administration of 10.8 mCi Tc99m tetrofosm in (Myoview). The patient was infused intravenously with Lexiscan (Regadenoson). Then, 33.5 mCi Tc99m tetrofosmin (Myoview) was administered intravenously, and stress images were obtained. Data was noe nstructed into short axis and horizontal and vertical long axis SPECT images. Gated SPECT images were also obtained. COMPARISON: None. FINDINGS: There is no definite reversible or fixed perfusion abnormality to suggest ischemia or infar ction. There is normal left ventricular chamber size, wall motion and ejection fraction. Left ventr icular ejection fraction measures 65%. IMPRESSION: 1. Normal myocardial perfusion at rest and during stress. 2. Left ventricular ejection fraction measuring 65%. Reviewed, dictated and finalized at location A.
--- NOTE | 2025-04-21 09:41 | EST_ITS ---
Patient Info Name: Jacqueline Brantley Age: 69 years : 1955 Gender: Female Ht: 67 in Wt: 207 lbs BSA: 2.14 m2 Exam Date: 04/21/2025 9:41 AM Patient Status: O Admit Date: 04/21/2025 Exam Type: CA stress yanna w NM A regadenoson stress test was performed. Staff Referring Physician: Fox Guevara Attending Provider: Fox Guevara Exercise Technologist: Raina Peguero Exercise Physician: Puma Cardoza DO Summary 1. 1. Negative lexiscan stress test for ischemic ST changes by ECG criteria. 2. 2. Stable hemodynamics throughout the test. 3. 3. Nuclear scan to follow and will be reported separately. Please correlate with it. 4. 4. Patient informed of the above results. Protocol: Lexiscan Stress ECG Details Stage: REST Duration (min): 0 min : 49 sec HR (bpm): 73 SBP (mmHg): 128 DBP (mmHg): 76 Stage: REST Duration (min): 3 min : 42 sec HR (bpm): 72 SBP (mmHg): 128 DBP (mmHg): 76 Stage: STAGE 1 Duration (min): 0 min : 59 sec HR (bpm): 72 SBP (mmHg): 135 DBP (mmHg): 68 Stage: RECOVERY Duration (min): 1 min : 0 sec HR (bpm): 91 SBP (mmHg): 124 DBP (mmHg): 67 Stage: RECOVERY Duration (min): 2 min : 0 sec HR (bpm): 88 SBP (mmHg): 124 DBP (mmHg): 67 Stage: RECOVERY Duration (min): 3 min : 0 sec HR (bpm): 82 SBP (mmHg): 128 DBP (mmHg): 68 Stage: RECOVERY Duration (min): 3 min : 29 sec HR (bpm): 80 SBP (mmHg): 128 DBP (mmHg): 68 Rest HR: 72 bpm Peak HR: 92 bpm Rest Sys BP: 128 mmHg Peak Sys BP: 135 mmHg Max Pred HR: 152 bpm % Max Pred HR: 61 % Target HR: 129 bpm Max RPP: 12,420 bpm*mmHg Termination Reason: Completed protocol Cardiac Symptoms: Shortness of breath Total Time: 1 min : 0 sec Rest Rivero BP: 76 mmHg Peak Rivero BP: 68 mmHg Total Dose: 0.4 mg Resting ECG Sinus rhythm. Stress ECG No ST changes. Arrhythmias None. Report Signatures
--- OUTSIDE RECORDS SUMMARY | 2025-04-21 09:47 | XMS_ITS | Clinical Summary ---
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
--- OUTSIDE RECORDS SUMMARY | 2025-04-21 09:47 | XMS_ITS | Patient Health Record ---
Author Organization [facility] [employer] Address [address] [facility] [address] [place] [address] Support Name Relationship Address Phone DEBORAH MORATAYA Guarantor Unknown [phone] Reason For Referral No Information Medications Medication SIG (Take, Route, Frequency, Duration) Notes Start Date End Date Status ALPRAZolam 1 MG Oral Acti ve QUEtiapine Fumarate 50 MG Oral Active Atorvastatin Calcium 40 MG Oral Active Losartan Potassium 100 MG Oral Active Sertraline HCl 100 MG Oral Active ALPRAZolam 0.5 MG Oral Ac tive hydroCHLOROthiazide 25 MG Oral Active Acetaminophen-Codeine #3 300-30 MG Oral Active FLUoxetine HCl 20 MG Oral Active Sodium Chloride 1,000 mg Oral *Pick strength-form from [employer] for eRX* Active Plan Of Treatment No Information Insurance Providers Payer Name Payer Address Payer Phone Subscriber Number Group Number Insured Name Patient Relationship to Insured Coverage Start Date Coverage End Date [employer] [address] [address] [place] [address] [phone] [id number] DEBORAH ROMO Self - patient is the insured [employer] Medicare Replacemen t/Advantag e - Ppo [address] [address] [place] [address] [id number] DEBORAH ROMO Self - patient is the insured
== END 2025-04-21 09:21 | disposition home or self-care (01) ==
PROVIDERS: PCP Nurse Practitioner Family; Visit Provider Nurse Practitioner Family
DX: R06.09 Other forms of dyspnea (principal)
CPT/HCPCS: 78452; 93017; A9502; J2785

== ENCOUNTER 2025-09-15 14:15 | Outpatient (CLI) | payer MEDICARE, SELFPAY ==
--- NOTE | ~2025-09-15 | XR_ITS ---
XR knee LT 3V 09/15/2025 14:40 Indication: Left knee pain Procedure: 3 views left knee Comparison: 11/01/2016 Findings: Interval progression of severe tricompartment osteoarthritis. No fracture, subluxation or dislocation. No significant joint effusion. No foreign bodies. Impression: 1: Severe tricompartment osteoarthritis of the left knee. Reviewed, dictated and finalized at location O. AND CUTTER HAND Impression: 1: Severe tricompartment osteoarthritis of the left knee.
== END 2025-09-15 14:16 | disposition home or self-care (01) ==
LOC: MICIMG 14:17
PROVIDERS: PCP Family Medicine; Visit Provider Family Medicine
DX: M17.12 Unilateral primary osteoarthritis, left knee (principal); M25.562 Pain in left knee; G89.29 Other chronic pain
CPT/HCPCS: 73562